=== PATIENT | female | born 1985 | race Caucasian/White ===

== ENCOUNTER → 2016-05-03 | Outpatient (CLI) | payer BC | LOC: RAD 20:21 | PROVIDERS: ATTEND Internal Medicine Medical Oncology | DX: C85.90 Non-Hodgkin lymphoma, unspecified, unspecified site (principal) | CPT/HCPCS: 78815; A9552 ==

== ENCOUNTER → 2016-07-06 | Outpatient (CLI) | payer BC | LOC: OD 11:48 | PROVIDERS: ATTEND Physician Assistant | DX: M25.561 Pain in right knee (principal); D16.21 Benign neoplasm of long bones of right lower limb ==

== ENCOUNTER 2016-08-10 11:15 | Emergency (ER) | payer BC ==
[2016-08-10] MEDS ORDERED: METOCLOPRAMIDE HCL INJ/PF 10 MG/2 ML SDV IM ONE (13:07)
[2016-08-10] MEDS ORDERED: KETOROLAC TROMETHAMINE 60 MG/2 ML SDV IM ONE (13:07)
[2016-08-10] MEDS ORDERED: DIPHENHYDRAMINE HCL 25 MG CAPSULE PO ONE (13:07)
--- NOTE | 2016-08-10 14:10 | ER Document Report ---
HPI - HPI Patient complains to provider of: head and sinus pressure Pain Level: 4 Context: Patient is a 30-year-old female presents emergency Department complaining of sinus pressure and headache for the past 2 months. Patient states that she has seen her dentist as well as an urgent care who put her on 2 different antibiotics without any resolution of her symptoms. Patient states that she has not had any fevers, chills, sinus discharge, pain to palpation of her sinuses. Pain is a throbbing pressure worse over the right side of her face. She states that she'll take [id number] Tylenol or Motrin with minimal improvement in her symptoms. She admits that she is light sensitive. She denies any history of migraines. PCP is Nohemi zendejas - CARDIOVASCULAR Cardiovascular: DENIES: Chest pain - REPRODUCTIVE Reproductive: DENIES: : - DERM Skin Color: Normal Past Medical History - Social History Smoking Status: Current Every Day Smoker Chew tobacco use (# tins/day): Yes Frequency of alcohol use: None Drug Abuse: None Family History: Reviewed & Not Pertinent Patient has suicidal ideation: No Patient has homicidal ideation: No Pulmonary Medical History: Denies: Hx Tuberculosis Neurological Medical History: Denies: Hx Seizures Endocrine Medical History: Reports: Hx Diabetes Mellitus Type 1 Renal/ Medical History: Denies: Hx End Stage Renal Disease, Hx Kidney Stones, Hx Peritoneal Dialysis GI Medical History: Reports: Hx Gastroesophageal Reflux Disease Musculoskeltal Medical History: Reports Hx Gout Past Surgical History: Reports: Hx Orthopedic Surgery - Back in 2012.. Denies: Hx Pacemaker - Immunizations Hx Diphtheria, Pertussis, Tetanus Vaccination: Yes Vertical Provider Document - CONSTITUTIONAL Agree With Documented VS: Yes Exam Limitations: No Limitations General Appearance: WD/WN, No Apparent Distress Notes: PHYSICAL EXAM GENERAL: Alert, interacts well. HEAD: Normocephalic, atraumatic. EYES: Pupils equal, round, and reactive to light. Extraocular movements intact. ENT: Oral mucosa moist, tongue midline. NECK: Full range of motion. Supple. Trachea midline. LUNGS: Clear to auscultation bilaterally, no wheezes, rales, or rhonchi. No respiratory distress. HEART: Regular rate and rhythm. No murmurs, gallops, or rubs. ABDOMEN: Soft, nondistended, nontender. No guarding, rebound, or rigidity.. Bowel sounds present in all 4 quadrants. EXTREMITIES: Moves all 4 extremities spontaneously. No edema, radial and dorsalis pedis pulses 2/4 bilaterally. No cyanosis. NEUROLOGICAL: Alert and oriented x4. Normal speech. PSYCH: Normal affect, normal mood. SKIN: Warm, dry, normal turgor. No rashes or lesions noted. - INFECTION CONTROL TRAVEL OUTSIDE OF THE [place] IN LAST 30 DAYS: No - RESPIRATORY O2 Sat by Pulse Oximetry: 95 Course - Re-evaluation Re-evalutation: 08/10/16 14:58 CT the head without any evidence of hemorrhage, mass, inflammation of the sinuses. Patient given a migraine cocktail which did improve her symptoms. Discussed with her to follow-up with her primary care for management and possible referral to a neurologist. - Vital Signs Vital signs: Temp Pulse Resp BP Pulse Ox 98.4 F 108 H 16 147/104 H 95 08/10/16 11:19 08/10/16 11:19 08/10/16 11:19 08/10/16 11:19 08/10/16 11:19 - Diagnostic Test Radiology reviewed: Image reviewed, Reports reviewed Discharge - Discharge Clinical Impression: Headache Condition: Good Disposition: HOME, SELF-CARE Additional Instructions: HEADACHE: The physician does not feel that the headache you are experiencing has a serious underlying cause. Most headaches are due to emotional stress, with resultant muscle tension (tension headache). Occasionally, headaches are secondary to changes in the blood vessels of the scalp (vascular headache and migraine headache). Sometimes, a headache is the first symptom of another developing illness, such as a viral infection. You have no evidence of stroke, bleeding, meningitis, or other serious cause of your headache. The treatment of headaches varies with the severity and cause of the pain. Not all headaches need pain shots. In fact, there is evidence that using narcotics for headaches may make them worse in the long run. The physician will determine the therapy that's in your best interest. If you develop a fever, if the headache is different from any you've previously experienced, or if the headache progressively worsens, then call your physician at once or go to the emergency room. REGLAN (METOCLOPRAMIDE): Reglan has been prescribed. This medicine affects the stomach and intestines. It can be used to treat nausea and vomiting, to prevent reflux of stomach acid up into the esophagus, or to increase the contractions of the stomach and intestines. It is often prescribed for esophagitis, and for paralysis of the stomach in diabetics. Reglan can cause either mild restlessness or drowsiness. You should contact the doctor at once if you become extremely restless, anxious, or cannot sleep, or if you develop uncontrollable motions of the lips, tongue, or jaw. Do not take alcohol with this medicine. Do not drive or operate machinery until you have been taking this medicine long enough to know how it affects you. Call the doctor if you develop abdominal pains, lightheadedness, black stool, or blood in the stool or vomitus. USE OF DIPHENHYDRAMINE: Diphenhydramine (Benadryl) is an antihistamine and has been recommended to help treat your headache and to prevent side effects of other medications used to treat headaches. The medication can be repeated four times daily. Age Elixir (12.5 mg/tsp) 25 mg pill adult 1-2 tabs Antihistamines may cause drowsiness, especially with the first dose. Do not operate machinery or drive while under the effects of the medication. Do not combine the medication with alcohol, or with any other medication without talking to your doctor. ANTINAUSEA MEDICATION: You have been given a medication to suppress nausea and vomiting. This type of medication can be given as a shot, pill, or suppository. It will usually last for many hours. Pills and shots usually last six to eight hours, suppositories last about 12 hours. For the typical illness, only one or two doses of the medication may be necessary. Mild lightheadedness may occur. This type of medicine can cause drowsiness. Do not drive or operate dangerous machinery while under its influence. Do not mix with alcohol. See your doctor at once if you have muscle spasms or tightness, or uncontrollable motions (particularly of the neck, mouth, or jaw). Persistent vomiting or severe lightheadedness should also be evaluated by the physician. TORADOL INJECTION: You have been given an injection of ketorolac tromethamine (Toradol). This is an excellent, safe drug for pain control. It also has potent antiinflammatory action. You should have significant pain relief within about one hour. Toradol is not addicting and is non-sedating. It does not interfere with driving or work. Call or return if you develop itching, hives, shortness of breath, or rash. FOLLOW-UP CARE: If you have been referred to a physician for follow-up care, call the physician s office for an appointment as you were instructed or within the next two days. If you experience worsening or a significant change in your symptoms, notify the physician immediately or return to the Emergency Department at any time for re-evaluation. Prescriptions: Butalb/Acetaminophen/Caffeine [Fioricet (50-325-40 mg) Tablet] 1 - 2 tab PO Q4HP PRN #20 tab PRN Reason: Forms: Elevated Blood Pressure Referrals: NOHEMI ZENDEJAS PA-C [Primary Care Provider] - Follow up in 3-5 days
[2016-08-10 14:38] VITALS: BP 136/82
== END 2016-08-10 14:40 | disposition home or self-care (01) ==
LOC: ER 11:15
DX: R51 Headache (principal); J34.89 Other specified disorders of nose and nasal sinuses; H53.149 Visual discomfort, unspecified; E10.9 Type 1 diabetes mellitus without complications; F17.200 Nicotine dependence, unspecified, uncomplicated
CPT/HCPCS: 99284; 96372; 70450; J1885; J2765

== ENCOUNTER 2016-10-06 17:00 | Emergency (ER) | payer BC ==
--- NOTE | 2016-10-06 17:29 | ER Document Report ---
ED Medical Screen (RME) - General Chief Complaint: Vaginal Bleeding Stated Complaint: WEAKNESS Time Seen by Provider: 10/06/16 17:28 Notes: Patient is a 30-year-old female, past medical history irregular periods, diabetes, presents with several days of heavy vaginal bleeding, passing clots and abdominal cramping. Her last menstrual period was 3 months ago. She has never had this before and never required a blood transfusion. She is starting to feel lightheaded now. PE: NAD. RRR. Non-tender abdomen. I have greeted and performed a rapid initial assessment of this patient. A comprehensive ED assessment and evaluation of the patient, analysis of test results and completion of the medical decision making process will be conducted by additional ED providers. TRAVEL OUTSIDE OF THE [place] IN LAST 30 DAYS: No - Related Data Allergies/Adverse Reactions: No Known Allergies Allergy (Verified 08/10/16 11:18) Past Medical History Pulmonary Medical History: Denies: Hx Tuberculosis Neurological Medical History: Denies: Hx Seizures Endocrine Medical History: Reports: Hx Diabetes Mellitus Type 1 Renal/ Medical History: Denies: Hx End Stage Renal Disease, Hx Kidney Stones, Hx Peritoneal Dialysis GI Medical History: Reports: Hx Gastroesophageal Reflux Disease Musculoskeltal Medical History: Reports Hx Gout Past Surgical History: Reports: Hx Orthopedic Surgery - Back in 2012.. Denies: Hx Pacemaker - Immunizations Hx Diphtheria, Pertussis, Tetanus Vaccination: Yes Physical Exam - Vital signs Vitals: Temp Pulse Resp BP Pulse Ox 98.2 F 86 14 142/91 H 96 10/06/16 17:07 10/06/16 17:07 10/06/16 17:07 10/06/16 17:07 10/06/16 17:07 Course - Vital Signs Vital signs: Temp Pulse Resp BP Pulse Ox 98.2 F 86 14 142/91 H 96 10/06/16 17:07 10/06/16 17:07 10/06/16 17:07 10/06/16 17:07 10/06/16 17:07
[2016-10-06 17:49] LABS: ABSOLUTE BASOPHILS # (AUTO) 0.1 10^3/uL (0.0-0.2); ABSOLUTE EOSINOPHILS # (AUTO) 0.2 10^3/uL (0.0-0.6); ABSOLUTE LYMPHOCYTES (AUTO) 3.7 10^3/uL (0.5-4.7); ABSOLUTE MONOCYTES (AUTO) 0.6 10^3/uL (0.1-1.4); BASOPHILS % (AUTO) 1.1 % (0-2); HEMATOCRIT 44.6 % (36.0-47.0); HEMOGLOBIN 15.1 g/dL (12.0-15.5); HGB HCT DIFFERENCE 0.7; LYMPHOCYTES % (AUTO) 35.1 % (13-45); MEAN CORPUSCULAR HEMOGLOBIN 31.1 pg (27.0-33.4); MEAN CORPUSCULAR HGB CONC 33.8 g/dL (32.0-36.0); MEAN CORPUSCULAR VOLUME 92 fl (80-97); MONOCYTES % (AUTO) 5.2 % (3-13); RED BLOOD COUNT 4.84 10^6/uL (3.72-5.28); RED CELL DISTRIBUTION WIDTH 13.1 % (11.5-14.0); SEGMENTED NEUTROPHILS % (AUTO) 56.6 % (42-78); WHITE BLOOD COUNT 10.7 10^3/uL (4.0-10.5)
[2016-10-06] MEDS ORDERED: HYDROCODONE/ACETAMINOPHEN 5-325 MG TABLET PO ONE (18:13)
--- NOTE | 2016-10-06 18:13 | ER Document Report ---
ED General - General Chief Complaint: Vaginal Bleeding Stated Complaint: WEAKNESS Time Seen by Provider: 10/06/16 17:28 Mode of Arrival: Ambulatory Information source: Patient TRAVEL OUTSIDE OF THE [place] IN LAST 30 DAYS: No - HPI Notes: Patient presents to ER A&O x 4 with complaint menstrual bleeding x 2 weeks increasing over last four days. Reports blood clots last four days. Reports hx of irregular periods. Denies hx of anemia. Breaths even and unlabored. Speaking in clear and complete sentences. NAD noted. Reports mild lower abdominal cramping. Patient also reports that she is noncompliant with her diabetic medications including metformin, Lantus, Actos, Victoza, lisinopril. She was counseled at length about the need to take these diabetic medications in the complication she would suffer she did not. She is also instructed to quit smoking. - Related Data Allergies/Adverse Reactions: No Known Allergies Allergy (Verified 08/10/16 11:18) Past Medical History - Social History Smoking Status: Current Every Day Smoker Smoking Education Provided: Yes Frequency of alcohol use: None Drug Abuse: None Lives with: Family Family History: Reviewed & Not Pertinent Patient has suicidal ideation: No Patient has homicidal ideation: No Pulmonary Medical History: Denies: Hx Tuberculosis Neurological Medical History: Denies: Hx Seizures Endocrine Medical History: Reports: Hx Diabetes Mellitus Type 1 Renal/ Medical History: Denies: Hx End Stage Renal Disease, Hx Kidney Stones, Hx Peritoneal Dialysis GI Medical History: Reports: Hx Gastroesophageal Reflux Disease Musculoskeltal Medical History: Reports Hx Gout Past Surgical History: Reports: Hx Orthopedic Surgery - Back in 2012.. Denies: Hx Pacemaker - Immunizations Hx Diphtheria, Pertussis, Tetanus Vaccination: Yes Review of Systems - Review of Systems Notes: REVIEW OF SYSTEMS: CONSTITUTIONAL : Denies fever, chills, or sweats. Denies recent illness. EENT: Denies eye, ear, throat, or mouth pain or symptoms. Denies nasal or sinus congestion or discharge. Denies throat, tongue, or mouth swelling or difficulty swallowing. CARDIOVASCULAR: Denies chest pain. Denies palpitations or racing or irregular heart beat. Denies ankle edema. RESPIRATORY: Denies cough, cold, or chest congestion. Denies shortness of breath, difficulty breathing, or wheezing. GASTROINTESTINAL: Denies abdominal pain or distention. Denies nausea, vomiting , or diarrhea. Denies blood in vomitus, stools, or per rectum. Denies black, tarry stools. Denies constipation. GENITOURINARY: Denies difficulty urinating, painful urination, burning, frequency, blood in urine, or discharge. FEMALE GENITOURINARY: Denies vaginal discharge or odor. MUSCULOSKELETAL: Denies back or neck pain or stiffness. Denies joint pain or swelling. SKIN: Denies rash, lesions or sores. HEMATOLOGIC : Denies easy bruising or bleeding. LYMPHATIC: Denies swollen, enlarged glands. NEUROLOGICAL: Denies confusion or altered mental status. Denies passing out or loss of consciousness. Denies dizziness or lightheadedness. Denies headache. Denies weakness or paralysis or loss of use of either side. Denies problems with gait or speech. Denies sensory loss, numbness, or tingling. Denies seizures. PSYCHIATRIC: Denies anxiety or stress. Denies depression, suicidal ideation, or homicidal ideation. ALL OTHER SYSTEMS REVIEWED AND NEGATIVE. Dictation was performed using [email or web address] voice recognition software Physical Exam - Vital signs Vitals: Temp Pulse Resp BP Pulse Ox 98.2 F 86 14 142/91 H 96 10/06/16 17:07 10/06/16 17:07 10/06/16 17:07 10/06/16 17:07 10/06/16 17:07 - Notes Notes: PHYSICAL EXAMINATION: GENERAL: Well-appearing, well-nourished and in no acute distress. HEAD: Atraumatic, normocephalic. EYES: Pupils equal round and reactive to light, extraocular movements intact, conjunctiva are normal. ENT: Nares patent, oropharynx clear without exudates. Moist mucous membranes. NECK: Normal range of motion, supple without lymphadenopathy LUNGS: Breath sounds clear to auscultation bilaterally and equal. No wheezes rales or rhonchi. HEART: Regular rate and rhythm without murmurs ABDOMEN: Soft, nontender, nondistended abdomen. No guarding, no rebound. No masses appreciated. Obese. Female : deferred Musculoskeletal: Normal range of motion. No cyanosis. Trace bilateral lower extremity edema. Negative Homans. No palpable cord. NEUROLOGICAL: Cranial nerves grossly intact. Normal speech, normal gait. Normal sensory, motor exams PSYCH: Normal mood, normal affect. SKIN: Warm, Dry, normal turgor, no rashes or lesions noted. No skin breakdown. Course - Re-evaluation Re-evalutation: 10/06/16 19:11 Length about the need to control her diabetes. She was given approximately 1 L of fluid to drink with water. She was given Provera and Sylmar. No evidence for anemia or or electrolyte imbalance or renal insufficiency or significant infection or urinary tract infection or suggestion for significant ketoacidosis. 10/06/16 19:11 - Vital Signs Vital signs: Temp Pulse Resp BP Pulse Ox 98.2 F 86 14 142/91 H 96 10/06/16 17:07 10/06/16 17:07 10/06/16 17:07 10/06/16 17:07 10/06/16 17:07 - Laboratory Result Diagrams: 10/06/16 17:37 10/06/16 17:37 Laboratory results interpreted by me: 10/06/16 10/06/16 10/06/16 17:37 17:37 17:45 WBC 10.7 H Sodium 135.4 L Carbon Dioxide 20 L Creatinine 0.47 L Glucose 273 H Direct Bilirubin 0.5 H AST 61 H Urine Protein 100 H Urine Glucose (UA) >=500 H Urine Ketones TRACE H Urine Blood LARGE H Discharge - Discharge Clinical Impression: Hyperglycemia, Medically noncompliant Menorrhagia Qualifiers: Menorrahagia type: with irregular cycle Qualified Code(s): N92.1 - Excessive and frequent menstruation with irregular cycle Condition: Stable Disposition: HOME, SELF-CARE Instructions: Menorrhagia ([facility]), Hyperglycemia ([facility]), Stop Smoking ([facility]) Additional Instructions: Drink plenty of water. Watch your diet closely. Return to the emergency department in case of fever, severe bleeding or vomiting. Follow-up with your regular practitioner to inquire about starting control pills to regulate your menses. Prescriptions: Tramadol HCl [Ultram 50 mg Tablet] 50 mg PO Q4HP PRN #20 tablet PRN Reason: Ibuprofen [Motrin 800 mg Tablet] 800 mg PO Q8H PRN #30 tab PRN Reason: Medroxyprogesterone Acet [Provera 10 Mg Tablet] 10 mg PO DAILY #10 tablet Forms: Smoking Cessation Education
[2016-10-06 18:21] LABS: APPEARANCE,URINE CLOUDY; BILIRUBIN,URINE NEGATIVE (NEGATIVE); GLUCOSE, URINE >=500 mg/dL (NEGATIVE); KETONES,URINE TRACE mg/dL (NEGATIVE); LEUKOCYTE ESTERASE,URINE NEGATIVE (NEGATIVE); NITRITE,URINE NEGATIVE (NEGATIVE); PROTEIN,URINE 100 mg/dL (NEGATIVE); URINE SPECIFIC GRAVITY 1.033; UROBILINOGEN,URINE NEGATIVE mg/dL (<2.0)
[2016-10-06 18:41] LABS: ALANINE AMINOTRANSFERASE 45 U/L (9-52); ALKALINE PHOSPHATASE 61 U/L (38-126); ANION GAP 14 (5-19); ASPARTATE AMINO TRANSFERASE 61 U/L (14-36); BILIRUBIN,DIRECT 0.5 mg/dL (0.0-0.4); BILIRUBIN,TOTAL 0.7 mg/dL (0.2-1.3); BLOOD UREA NITROGEN 10 mg/dL (7-20); CALCIUM 9.7 mg/dL (8.4-10.2); CARBON DIOXIDE 20 mmol/L (22-30); CHLORIDE 101 mmol/L (98-107); CREATININE RESULT 0.47 mg/dL (0.52-1.25); GLUCOSE 273 mg/dL (75-110); POTASSIUM 4.3 mmol/L (3.6-5.0); SODIUM 135.4 mmol/L (137-145); TOTAL PROTEIN 7.3 g/dL (6.3-8.2)
[2016-10-06] MEDS ORDERED: MEDROXYPROGESTERONE ACET 10 MG TABLET PO ONE (19:00)
[2016-10-06 19:35] VITALS: BP 138/87
== END 2016-10-06 19:34 | disposition home or self-care (01) ==
LOC: ER 17:00
DX: N92.1 Excessive and frequent menstruation with irregular cycle (principal); E10.65 Type 1 diabetes mellitus with hyperglycemia; T38.3X6A Underdosing of insulin and oral hypoglycemic [antidiabetic] drugs, initial encounter; T46.4X6A Underdosing of angiotensin-converting-enzyme inhibitors, initial encounter; Z91.14 Patient's other noncompliance with medication regimen; R10.30 Lower abdominal pain, unspecified; F17.200 Nicotine dependence, unspecified, uncomplicated; Z71.6 Tobacco abuse counseling
CPT/HCPCS: 99284; 36415; 85025; 81025; 80053; 81001; J3490

== ENCOUNTER 2017-04-12 15:17 | Emergency (ER) | payer SELFPAY ==
[2017-04-12] MEDS ORDERED: KETOROLAC TROMETHAMINE 60 MG/2 ML SDV IM ONE (16:28)
--- NOTE | 2017-04-12 16:33 | ER Document Report ---
ED Extremity Problem, Lower - General Chief Complaint: Knee Pain Stated Complaint: RIGHT KNEE PAIN Time Seen by Provider: 04/12/17 16:00 Mode of Arrival: Ambulatory Information source: Patient Notes: 31-year-old female presents to ED for complaint of popping in her right knee. She states that on she was horsing around and heard and felt a pop in her knee causing her to fall to the ground. Patient states that her was able to get her to the chair. Patient states she can walk as long as she walks straight but if she tries to turn or to twist on her leg that it feels like it is popping out of joint and it is extremely painful. She states is very painful to bend. TRAVEL OUTSIDE OF THE [place] IN LAST 30 DAYS: No - HPI Patient complains to provider of: Injury, Pain Location: Knee - Right Occurred: Other - Where: Home, Outdoors Onset/Duration: Intermittent Quality of pain: Sharp, Throbbing Severity: Moderate Pain Level: 4 Context: Twisted Recent injury: Possibly Associated symptoms: Shelby a pop, Painful ambulation Exacerbated by: Movement, Walking Relieved by: Elevation, Ice, Rest - Related Data Allergies/Adverse Reactions: No Known Allergies Allergy (Verified 08/10/16 11:18) Past Medical History - General Information source: Patient - Social History Smoking Status: Current Every Day Smoker Cigarette use (# per day): Yes - Pack per day Chew tobacco use (# tins/day): No Smoking Education Provided: Yes - 4 minutes Frequency of alcohol use: None Drug Abuse: None Occupation: None Lives with: Family Family History: Arthritis, DM, Hypertension, Malignancy. denies: CAD, COPD, CVA , Hyperlipidemia, Thyroid Disfunction Patient has suicidal ideation: No Patient has homicidal ideation: No - Past Medical History Cardiac Medical History: Reports: None Pulmonary Medical History: Reports: None EENT Medical History: Reports: None Neurological Medical History: Reports: None Endocrine Medical History: Reports: Hx Diabetes Mellitus Type 2 Renal/ Medical History: Reports: None Malignancy Medical History: Reports: None GI Medical History: Reports: Hx Gastroesophageal Reflux Disease Musculoskeltal Medical History: Reports Hx Arthritis, Reports Hx Gout, Reports Hx Musculoskeletal Deformity, Reports Hx Musculoskeletal Trauma Skin Medical History: Reports None Psychiatric Medical History: Reports: None Traumatic Medical History: Reports: Hx Fractures - Humerus Infectious Medical History: Reports: None Past Surgical History: Reports: Hx Oral Surgery - [place] teeth, Hx Orthopedic Surgery - Back in 2013. 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 denies: Joint swelling Skin: No symptoms reported Hematologic/Lymphatic: No symptoms reported Neurological/Psychological: No symptoms reported -: Yes All other systems reviewed and negative Physical Exam - Vital signs Vitals: Temp Pulse Resp BP Pulse Ox 98.8 F 108 H 18 134/90 H 96 04/12/17 15:21 04/12/17 15:21 04/12/17 15:21 04/12/17 15:21 04/12/17 15:21 Interpretation: Normal - General General appearance: Appears well, Alert - HEENT Head: Normocephalic, Atraumatic Eyes: Normal Pupils: PERRL - Respiratory Respiratory status: No respiratory distress Chest status: Nontender Breath sounds: Normal Chest palpation: Normal - Cardiovascular Rhythm: Regular Heart sounds: Normal auscultation Murmur: No - Abdominal Inspection: Normal Distension: No distension Bowel sounds: Normal Tenderness: Nontender Organomegaly: No organomegaly - Back Back: Normal, Nontender - Extremities General upper extremity: Normal inspection, Nontender, Normal color, Normal ROM , Normal temperature General lower extremity: Normal inspection, Normal color, Normal temperature. No: Celia's sign Knee: Tender, Pain with ROM, Popliteal fossa tender, Tender joint line. No: Abrasion, Deformity, Dislocation, Drawer's test instability, Ecchymosis, Instability, Joint effusion, Laceration, Laxity with valgus stress, Laxity with varus stress, Patellar tendon intact, Unable to bear weight - Neurological Neuro grossly intact: Yes Cognition: Normal Orientation: AAOx4 Viola Coma Scale Eye Opening: Spontaneous Viola Coma Scale Verbal: Oriented Rhodes Coma Scale Motor: Obeys Commands Viola Coma Scale Total: 15 Speech: Normal Motor strength normal: LUE, RUE, LLE, RLE Sensory: Normal - Psychological Associated symptoms: Normal affect, Normal mood - Skin Skin Temperature: Warm Skin Moisture: Dry Skin Color: Normal Course - Re-evaluation Re-evalutation: 04/12/17 20:36 X-ray discussed with patient and written report given to patient. Patient instructed to follow-up with orthopedics. Patient was given a Toradol injection in the ED for her pain. Patient instructed to use ibuprofen over-the- counter. - Vital Signs Vital signs: Temp Pulse Resp BP Pulse Ox 98.0 F 92 16 147/87 H 96 04/12/17 17:55 04/12/17 17:55 04/12/17 17:55 04/12/17 17:55 04/12/17 17:55 - Diagnostic Test Radiology reviewed: Image reviewed, Reports reviewed Procedures - Immobilization Left Knee Time completed: 17:30 Immobilizer type: Crutches, Knee immobilizer Performed by: PCT Post-Proc Neuro Vasc Exam: Normal Alignment checked and good: Yes Discharge - Discharge Clinical Impression: osteochondroma proximal tibia HTN (hypertension) Qualifiers: Hypertension type: unspecified Qualified Code(s): I10 - Essential (primary) hypertension Condition: Stable Disposition: HOME, SELF-CARE Instructions: Family Physicians / Practices, Use of [id number] Ibuprofen ([facility]) Additional Instructions: Your x-ray shows a small osteochondroma to the proximal tibia. This is not an acute finding. This is something that she will need to follow-up with the orthopedics concerning. KNEE IMMOBILIZING SPLINT: The knee immobilizing splint will protect the injury while healing begins. This type of splint does not allow the knee to bend at all. No running or sports will be possible. If the splint allows painfree walking, it's giving adequate protection. If there is still significant pain, crutches may be needed as well. Don't do anything that hurts. Adjusted the splint, if necessary. The stiffeners on the sides are attached with Velcro, so they can be easily moved to adjust for thigh and calf size. If you need help with these adjustments, come back. You will lose muscle strength in the thigh while using this splint. The doctor will advise you if it's safe to do isometric knee exercises while you use it. USE OF CRUTCHES: The doctor has recommended that you not bear weight at this time. You will need to use crutches. Adjust the crutches so the tops come to about two inches under the armpit while you are standing upright. Use your hands -- not your armpits -- to support your weight. To get into a chair, support yourself with one crutch on the injured side. Hold the chair with the other hand, then lower yourself while putting all your weight on the good leg. Going up stairs is `good leg up, step up, then bring up crutches and bad leg.' Down stairs is `bad leg and crutches down, then bring good leg down.' If you develop numbness or swelling in an arm or hand, you are using the crutches incorrectly. Return if you are having any problems with the crutches. ICE & ELEVATION: Apply ice packs frequently against the painful area. Many different schedules are recommended, such as "20 minutes on, 20 minutes off" or "one hour ice, two hours rest." If you need to work, you may need to go longer between ice treatments. You should plan to have the area ice packed AT LEAST one- fourth of the time. The ice should be applied over the wrap, tape, or splint, or over a layer of cloth -- not directly against the skin. Some ice bags have a built-in cloth and can be put directly on the skin. Your injured part should be elevated as much as possible over the next 48 hours. Try to keep the injury above the level of the heart. Avoid use of the injured area. Elevation and rest will decrease the swelling. USE OF [id number] IBUPROFEN: Ibuprofen (Advil, Nuprin, Medipren, Motrin IB) is a medication for fever and pain control. In addition, it has anti- inflammatory effects which may be beneficial, especially in the treatment of injuries. It's best to take ibuprofen with food. Persons with ulcer disease or allergy to aspirin should notify their physician of this before taking ibuprofen. Ibuprofen can be given every four to six hours, for a total of four doses daily. Age Pain or fever dose Antiinflammatory dose 6-8 yr 200 mg (1 tab) 200 mg (1 tab) 9-11 yr 200 mg (1 tab) 200-400 mg (1-2 tab) 11-14 yr 200-400 mg (1-2 tab) 400 mg (2 tab) 15-adult 400 mg (2 tab) 600 mg (3 tab) FOLLOW-UP CARE: If you have been referred to a physician for follow-up care, call the physician s office for an appointment as you were instructed or within the next two days. If you experience worsening or a significant change in your symptoms, notify the physician immediately or return to the Emergency Department at any time for re-evaluation. Forms: Elevated Blood Pressure, Smoking Cessation Education Referrals: [facility], [ACTIVE STAFF] - Follow up as needed
--- NOTE | 2017-04-12 16:52 | RADIOLOGY REPORT (SQ) ---
EXAM DESCRIPTION: KNEE RIGHT 4 VIEWS COMPLETED DATE/TIME: 04/12/2017 4:41 pm REASON FOR STUDY: popping feelling causing her to fall pain in knee COMPARISON: None. NUMBER OF VIEWS: Four views. TECHNIQUE: AP, lateral, and both oblique radiographic images acquired of the right knee. LIMITATIONS: None. FINDINGS: MINERALIZATION: Normal. BONES: No acute fracture or dislocation. There is a small focal projection of bone extending inferio rly at the level of the proximal metaphysis of the tibia medially most consistent with a small osteoc hondroma. JOINT: No effusion. SOFT TISSUES: No soft tissue swelling. No radio-opaque foreign body. OTHER: No other significant finding. IMPRESSION: Findings consistent with a small osteochondroma involving the proximal tibia as noted ab ove. NO RADIOGRAPHIC EVIDENCE OF ACUTE INJURY. TECHNICAL DOCUMENTATION: JOB ID: [id number] [employer]- All Rights Reserved
[2017-04-12 17:58] VITALS: BP 147/87
== END 2017-04-12 17:58 | disposition home or self-care (01) ==
LOC: ER 15:17
DX: D16.22 Benign neoplasm of long bones of left lower limb (principal); I10 Essential (primary) hypertension; M25.561 Pain in right knee; W18.30XA Fall on same level, unspecified, initial encounter; E11.9 Type 2 diabetes mellitus without complications; F17.210 Nicotine dependence, cigarettes, uncomplicated
CPT/HCPCS: 99406; 99283; 96372; 73564; L1830; J1885

== ENCOUNTER 2017-05-17 19:08 | Inpatient (IN) | payer BC ==
[2017-05-17] MEDS ORDERED: NORMAL SALINE 1000 ML 1,000 ML IV ONE (19:56)
--- NOTE | 2017-05-17 19:59 | ER Document Report ---
ED Medical Screen (RME) - General Chief Complaint: Abscess Stated Complaint: POSSIBLE ABSCESS Time Seen by Provider: 05/17/17 19:56 Notes: pt states has "sore" near rectum, has had fever and "sugars are high". TRAVEL OUTSIDE OF THE [place] IN LAST 30 DAYS: No - Related Data Allergies/Adverse Reactions: No Known Allergies Allergy (Verified 08/10/16 11:18) Past Medical History - Social History Chew tobacco use (# tins/day): No Drug Abuse: None Endocrine Medical History: Reports: Hx Diabetes Mellitus Type 2 Renal/ Medical History: Denies: Hx Peritoneal Dialysis GI Medical History: Reports: Hx Gastroesophageal Reflux Disease Musculoskeltal Medical History: Reports Hx Arthritis, Reports Hx Gout, Reports Hx Musculoskeletal Deformity, Reports Hx Musculoskeletal Trauma Traumatic Medical History: Reports: Hx Fractures - Humerus Past Surgical History: Reports: Hx Oral Surgery - [place] teeth, Hx Orthopedic Surgery - Back in 2012. 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
[2017-05-17 22:54] LABS: VENOUS BLOOD HCO3 25.9 mmol/L (20-32); VENOUS BLOOD PCO2 42.3 mmHg (35-63); VENOUS BLOOD PH 7.41 (7.30-7.42)
[2017-05-17 22:56] LABS: ABSOLUTE BASOPHILS # (AUTO) 0.2 10^3/uL (0.0-0.2); ABSOLUTE EOSINOPHILS # (AUTO) 0.1 10^3/uL (0.0-0.6); ABSOLUTE LYMPHOCYTES (AUTO) 3.6 10^3/uL (0.5-4.7); ABSOLUTE MONOCYTES (AUTO) 0.9 10^3/uL (0.1-1.4); ABSOLUTE NEUT (AUTO) 12.7 10^3/uL (1.7-8.2); BASOPHILS % (AUTO) 1.2 % (0-2); EOSINOPHILS % (AUTO) 0.7 % (0-6); HEMATOCRIT 43.7 % (36.0-47.0); HEMOGLOBIN 15.1 g/dL (12.0-15.5); LYMPHOCYTES % (AUTO) 20.2 % (13-45); MEAN CORPUSCULAR HEMOGLOBIN 30.9 pg (27.0-33.4); MEAN CORPUSCULAR HGB CONC 34.6 g/dL (32.0-36.0); MEAN CORPUSCULAR VOLUME 89 fl (80-97); MONOCYTES % (AUTO) 5.3 % (3-13); PLATELET COUNT 220 10^3/uL (150-450); RED BLOOD COUNT 4.91 10^6/uL (3.72-5.28); RED CELL DISTRIBUTION WIDTH 12.7 % (11.5-14.0); SEGMENTED NEUTROPHILS % (AUTO) 72.6 % (42-78); TOTAL CELLS COUNTED % (AUTO) 100 %; WHITE BLOOD COUNT 17.6 10^3/uL (4.0-10.5)
[2017-05-17 23:09] LABS: ALANINE AMINOTRANSFERASE 31 U/L (9-52); ALBUMIN 4.6 g/dL (3.5-5.0); ALKALINE PHOSPHATASE 60 U/L (38-126); ANION GAP 11 (5-19); ASPARTATE AMINO TRANSFERASE 23 U/L (14-36); BILIRUBIN,DIRECT 0.3 mg/dL (0.0-0.4); BLOOD UREA NITROGEN 5 mg/dL (7-20); CALCIUM 9.4 mg/dL (8.4-10.2); CARBON DIOXIDE 26 mmol/L (22-30); CHLORIDE 99 mmol/L (98-107); GLUCOSE 264 mg/dL (75-110); POTASSIUM 4.2 mmol/L (3.6-5.0); SODIUM 135.9 mmol/L (137-145); TOTAL PROTEIN 7.3 g/dL (6.3-8.2)
[2017-05-18] MEDS ORDERED: VANCOMYCIN HCL INJ 1000 MG VIAL IV ONE (00:29)
[2017-05-18] MEDS ORDERED: CLINDAMYCIN 300 MG/D5W RTU 300 MG/50 ML RTUPB IV ONE (00:31)
[2017-05-18] MEDS ORDERED: HYDROMORPHONE HCL INJ/PF 2 MG/ML AMPULE IV ONE (01:42)
--- NOTE | 2017-05-18 01:43 | ER Document Report ---
ED General - General Chief Complaint: Abscess Stated Complaint: POSSIBLE ABSCESS Time Seen by Provider: 05/17/17 19:56 Notes: Patient is a 31-year-old female presents with complaint of an abscess. Sepsis no her rectum. She has had abscess before but more in the abdominal wall. She is a diabetic. Said her symptoms have been worsening over last 2-3 days. Subjective fevers at home. No vomiting. No diarrhea. No other complaints at this time. TRAVEL OUTSIDE OF THE [place] IN LAST 30 DAYS: No - Related Data Allergies/Adverse Reactions: No Known Allergies Allergy (Verified 08/10/16 11:18) Past Medical History - Social History Smoking Status: Current Every Day Smoker Chew tobacco use (# tins/day): No Frequency of alcohol use: None Drug Abuse: None Family History: Arthritis, DM, Hypertension, Malignancy. denies: CAD, COPD, CVA , Hyperlipidemia, Thyroid Disfunction Patient has suicidal ideation: No Patient has homicidal ideation: No Endocrine Medical History: Reports: Hx Diabetes Mellitus Type 2 Renal/ Medical History: Denies: Hx Peritoneal Dialysis GI Medical History: Reports: Hx Gastroesophageal Reflux Disease Musculoskeltal Medical History: Reports Hx Arthritis, Reports Hx Gout, Reports Hx Musculoskeletal Deformity, Reports Hx Musculoskeletal Trauma Traumatic Medical History: Reports: Hx Fractures - Humerus Past Surgical History: Reports: Hx Oral Surgery - [place] teeth, Hx Orthopedic Surgery - Back in 2012. 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 RESPIRATORY: Denies cough, cold, or chest congestion. Denies shortness of breath, difficulty breathing, or wheezing. GASTROINTESTINAL: Denies abdominal pain. Denies nausea, vomiting, or diarrhea. Denies constipation. Last BM: GENITOURINARY: Denies difficulty urinating, painful urination, burning, frequency, or blood in urine. MUSCULOSKELETAL: Denies neck or back pain or joint pain or swelling. SKIN: Perirectal abscess NEUROLOGICAL: Denies altered mental status or loss of consciousness. Denies headache. Denies weakness or paralysis or loss of use of either side. Denies problems with gait or speech. Denies sensory or motor loss. ALL OTHER SYSTEMS REVIEWED AND NEGATIVE. Physical Exam - Vital signs Vitals: Temp Pulse Resp BP Pulse Ox 99.4 F 126 H 18 152/106 H 96 05/17/17 19:51 05/17/17 19:51 05/17/17 19:51 05/17/17 19:51 05/17/17 19:51 - Notes Notes: General Appearance: Well nourished, alert, cooperative, no acute distress, mild to moderate obvious discomfort. Vitals: reviewed, See vital signs table. Head: no swelling or tenderness to the head Eyes: PERRL, EOMI, Conjuctiva clear Lungs: No wheezing, No rales, No rhonci, No accessory muscle use, good air exchange bilaterally. Heart: Normal rate, Regular rythm, No murmur, no rub Abdomen: Normal BS, soft, No rigidity, No abdominal tenderness, No guarding, no rebound, Rectal: Patient has what appears to be a abscess start in the perirectal area and then continues in the largest into the perineum. Perineum is very swollen and indurated and has an obvious large abscess in this area. Abscess appears to taper down before reaching the genital area. Extremities: good pulses in all extremities, no swelling or tenderness in the extremities, no edema. Skin: warm, dry, appropriate color, no rash Neuro: speech clear, oriented x 3, normal affect, responds appropriately to questions. Course - Re-evaluation Re-evalutation: 05/18/17 01:51 CT scan is currently pending. I have called and discussed the case with the surgeon, Dr. Taveras, who agrees to admit the patient for definitive treatment such as surgical drainage of the abscess. Patient has been started on Clindamycin and vancomycin being that she is a diabetic. Patient will be monitored until transferred to her bed. Dictation of this chart was performed using voice recognition software; therefore, there may be some unintended grammatical errors. - Vital Signs Vital signs: Temp Pulse Resp BP Pulse Ox 99.4 F 126 H 18 152/106 H 96 05/17/17 19:51 05/17/17 19:51 05/17/17 19:51 05/17/17 19:51 05/17/17 19:51 - Laboratory Result Diagrams: 05/17/17 22:40 05/17/17 22:40 Laboratory results interpreted by me: 05/17/17 05/17/17 05/17/17 22:37 22:40 22:40 WBC 17.6 H Absolute Neutrophils 12.7 H Sodium 135.9 L BUN 5 L Creatinine 0.44 L Glucose 264 H POC Glucose 266 H Lactic Acid 05/17/17 22:40 WBC Absolute Neutrophils Sodium BUN Creatinine Glucose POC Glucose Lactic Acid 2.8 H Discharge - Discharge Clinical Impression: Perianal abscess, Perineal abscess Condition: Stable Disposition: ADMITTED INPATIENT Admitting Provider: Surgicalist Referrals: NOHEMI CASAS PA-C [Primary Care Provider] - Follow up as needed
[2017-05-18] MEDS ORDERED: DIPHENHYDRAMINE HCL 50 MG/ML VIAL IV ONE (02:24)
--- NOTE | 2017-05-18 02:38 | RADIOLOGY REPORT (SQ) ---
EXAM DESCRIPTION: CT PELVIS WITH CLINICAL HISTORY: 31 years Female, perineal and rectal abscess COMPARISON: None. TECHNIQUE: 100 mL Isovue-370 IV contrast. Coronal and sagittal reformat. This exam was performed according to our departmental dose-optimization program, which includes automated exposure control, adjustment of the mA and/or kV according to patient size and/or use of iterative reconstruction technique. FINDINGS: 3.5 cm patchy swelling and edema of subcutaneous fat of the left paramedial perineum posteriorly; fluid component measures up to 1.1 x 1.9 cm. No evidence of abscess. Normal appendix. No significant free fluid in the pelvis. Pelvic structures appear otherwise intact. IMPRESSION: 3.5 cm region of subcutaneous swelling/edema left paramedial peroneal soft tissues may indicate cellulitis. No evidence of abscess.
[2017-05-18] MEDS ORDERED: FENTANYL CITRATE INJ/PF 100 MCG/2 ML AMPUL IV ONE ×2 (06:42→09:28)
[2017-05-18] MEDS ORDERED: FENTANYL CITRATE INJ/PF 100 MCG/2 ML AMPUL ONE (15:41)
[2017-05-18] MEDS ORDERED: ONDANSETRON HCL INJ/PF 4 MG/2 ML SDV ONE (15:41)
[2017-05-18] MEDS ORDERED: MIDAZOLAM 2 MG/2 ML INJ ONE (15:41)
[2017-05-18] MEDS ORDERED: PROPOFOL INJ 200 MG/20 ML VIAL IV ONE (15:41)
[2017-05-18] MEDS ORDERED: ONDANSETRON HCL INJ/PF 4 MG/2 ML SDV IV PRN (18:13)
[2017-05-18] MEDS ORDERED: (PENDING PHARMACY ID) (Metformin Hcl [Metformin Hcl] 1,000 MG) PO SCH (18:30)
[2017-05-18] MEDS ORDERED: VANCOMYCIN HCL INJ 1000 MG VIAL IV SCH ×2 (18:30→22:00)
[2017-05-18] MEDS ORDERED: GABAPENTIN 300 MG CAPSULE PO PRN (18:45)
--- NOTE | 2017-05-18 19:24 | PDOC H&P ---
History of Present Illness Admission Date/PCP: 05/18/17 02:02 NOHEMI CASAS PA-C History of Present Illness: CLYDE SALAS is a 31 year old female with a painful left perianal swelling that started 3 days ago. There was minimal discharge from it today. She is diabetic. Past Medical History Endocrine Medical History: Reports: Diabetes Mellitus Type 2 GI Medical History: Reports: Gastroesophageal Reflux Disease Musculoskeltal Medical History: Reports: Arthritis, Gout Psychiatric Medical History: Denies: Depression Past Surgical History Past Surgical History: Reports: Orthopedic Surgery - Back in 2013. 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 denies: CAD, COPD, CVA , Hyperlipidemia, Thyroid Disfunction Parental Family History Reviewed: No Children Family History Reviewed: Unknown Sibling(s) Family History Reviewed.: Unknown Medication/Allergy Home Medications: Gabapentin [Neurontin] 600 mg PO HSP PRN 05/18/17 Insulin Glargine,Hum.rec.anlog [Lantus] 50 units SUBCUT PC 05/18/17 Metformin HCl 1,000 mg PO BID 05/18/17 Allergies/Adverse Reactions: No Known Allergies Allergy (Verified 08/10/16 11:18) Review of Systems Constitutional: ABSENT: chills, fever(s), headache(s), weight gain, weight loss Eyes: ABSENT: visual disturbances Ears: ABSENT: hearing changes Nose, Mouth, and Throat: ABSENT: as per HPI, headache(s), mouth pain, sore throat, vertigo, other Cardiovascular: ABSENT: chest pain, dyspnea on exertion, edema, orthropnea, palpitations Respiratory: ABSENT: cough, hemoptysis Gastrointestinal: ABSENT: abdominal pain, constipation, diarrhea, hematemesis, hematochezia, nausea, vomiting Genitourinary: ABSENT: dysuria, hematuria Musculoskeletal: ABSENT: joint swelling Integumentary: PRESENT: other - left perianal swelling with minimal drainage Neurological: ABSENT: abnormal gait, abnormal speech, confusion, dizziness, focal weakness, syncope Psychiatric: ABSENT: anxiety, depression, homidical ideation, suicidal ideation Endocrine: ABSENT: cold intolerance, heat intolerance, polydipsia, polyuria Hematologic/Lymphatic: ABSENT: easy bleeding, easy bruising Physical Exam Vital Signs: Temp Pulse Resp BP Pulse Ox 98.3 F 93 20 114/66 96 05/18/17 18:30 05/18/17 18:30 05/18/17 18:30 05/18/17 18:30 05/18/17 18:30 Intake & Output 05/17/17 05/18/17 05/19/17 06:59 06:59 06:59 Intake Total 800 Output Total 25 Balance 775 General appearance: PRESENT: no acute distress, well-developed, well-nourished Head exam: PRESENT: atraumatic, normocephalic Eye exam: PRESENT: conjunctiva pink, EOMI, PERRLA. ABSENT: scleral icterus Ear exam: PRESENT: normal external ear exam Mouth exam: PRESENT: moist, tongue midline Neck exam: ABSENT: carotid bruit, JVD, lymphadenopathy, thyromegaly Respiratory exam: PRESENT: clear to auscultation berta. ABSENT: rales, rhonchi, wheezes Cardiovascular exam: PRESENT: RRR. ABSENT: diastolic murmur, rubs, systolic murmur GI/Abdominal exam: PRESENT: normal bowel sounds, soft. ABSENT: distended, guarding, mass, organolmegaly, rebound, tenderness Rectal exam: PRESENT: other - erythematous swelling in the left perianal area about 6cm x 4.5cm x 3cm with a small punctum with pus Musculoskeletal exam: PRESENT: ambulatory, deformity, dislocation, full ROM, normal inspection, tenderness, other Neurological exam: PRESENT: alert, awake, oriented to person, oriented to place , oriented to time, oriented to situation, CN II-XII grossly intact. ABSENT: motor sensory deficit Psychiatric exam: PRESENT: appropriate affect, normal mood. ABSENT: homicidal ideation, suicidal ideation Results Laboratory Results: 05/18/17 03:16 Lactic Acid 2.4 H Impressions: Pelvis CT 05/18/17 00:31 IMPRESSION: 3.5 cm region of subcutaneous swelling/edema left paramedial peroneal soft tissues may indicate cellulitis. No evidence of abscess. Assessment & Plan - Diagnosis (1) Type 2 diabetes mellitus Is this a current diagnosis for this admission?: Yes (2) Perianal abscess Is this a current diagnosis for this admission?: Yes - Plan Summary Plan Summary: The patient is admitted NPO For I&D of left perianal abscess
--- NOTE | 2017-05-18 19:34 | Operative Report ---
Operative Report DATE OF SURGERY: 05/18/17 PREOPERATIVE DIAGNOSIS: Left perianal abscess POSTOPERATIVE DIAGNOSIS: Left perianal abscess OPERATION: Incision and drainage of Left perianal abscess SURGEON: Edel Taveras ANESTHESIA: Spinal TISSUE REMOVED OR ALTERED: abscess left perianal area COMPLICATIONS: none ESTIMATED BLOOD LOSS: 20 ml INTRAOPERATIVE FINDINGS: 6cm x 4.5cm x 3cm abscess cavity left perianal area with pus. PROCEDURE: The patient was brought to the operating room and placed on the operating. Spinal anesthesia was administered and she was positioned in lithotomy with legs on Elieser stirrups. The perianal area, perineum and medial thighs were prepped with betadine and sterile drapes laid. A timeout was done. Under sterile aseptic conditions, a cruciate incision was made at the dome of the abscess and taken down to the cavity. pus was evacuated, cultures were taken. Loculi were broken down digitally. The cavity was irrigated with saline nayeli dressing of 1/4 inch iodoform gauze packing, 4x4 and tape applied. The patient tolerated the procedure well, she taken to the PACU in stable condition.
--- NOTE | 2017-05-18 19:48 | PDOC DISCHARGE SUMMARY ---
General - Admit/Disc Date/PCP Admission Date/Primary Care Provider: 05/18/17 02:02 NOHEMI CASAS PA-C Discharge Date: 05/19/17 - Discharge Diagnosis (1) Type 2 diabetes mellitus Is this a current diagnosis for this admission?: Yes (2) Perianal abscess Is this a current diagnosis for this admission?: Yes - Additional Information Resuscitation Status: Full Code Discharge Activity: Activity As Tolerated Prescriptions: Clindamycin HCl 300 mg PO Q6 #40 capsule Docusate Sodium [Colace 100 mg Capsule] 100 mg PO BID #60 capsule Oxycodone HCl/Acetaminophen [Percocet 5-325 mg Tablet] 1 tab PO Q4HP PRN #60 tablet PRN Reason: Home Medications: Clindamycin HCl 300 mg PO Q6 #40 capsule 05/18/17 Docusate Sodium [Colace 100 mg Capsule] 100 mg PO BID #60 capsule 05/18/17 Gabapentin [Neurontin] 600 mg PO HSP PRN 05/18/17 Insulin Glargine,Hum.rec.anlog [Lantus] 50 units SUBCUT PC 05/18/17 Metformin HCl 1,000 mg PO BID 05/18/17 Oxycodone HCl/Acetaminophen [Percocet 5-325 mg Tablet] 1 tab PO Q4HP PRN #60 tablet 05/18/17 History of Present Illness History of Present Illness: CLYDE SALAS is a 31 year old female with a painful left perianal swelling that started 3 days ago. There was minimal discharge from it today. She is diabetic. Hospital Course Hospital Course: She had an I&D of the abscess an dis discharged home with wound dressings and po clindamycin Physical Exam Vital Signs: Temp Pulse Resp BP Pulse Ox 98.3 F 93 20 114/66 96 05/18/17 18:30 05/18/17 18:30 05/18/17 18:30 05/18/17 18:30 05/18/17 18:30 Intake & Output 05/17/17 05/18/17 05/19/17 06:59 06:59 06:59 Intake Total 800 Output Total 25 Balance 775 General appearance: PRESENT: no acute distress, well-developed, well-nourished Head exam: PRESENT: atraumatic, normocephalic Eye exam: PRESENT: conjunctiva pink, EOMI, PERRLA. ABSENT: scleral icterus Neck exam: ABSENT: carotid bruit, JVD, lymphadenopathy, thyromegaly Respiratory exam: PRESENT: clear to auscultation berta. ABSENT: rales, rhonchi, wheezes Cardiovascular exam: PRESENT: RRR. ABSENT: diastolic murmur, rubs, systolic murmur GI/Abdominal exam: PRESENT: normal bowel sounds, soft. ABSENT: distended, guarding, mass, organolmegaly, rebound, tenderness Rectal exam: PRESENT: other - left perianal abscess Neurological exam: PRESENT: alert, awake, oriented to person, oriented to place , oriented to time, oriented to situation, CN II-XII grossly intact. ABSENT: motor sensory deficit Results Laboratory Results: 05/18/17 03:16 Lactic Acid 2.4 H Impressions: Pelvis CT 05/18/17 00:31 IMPRESSION: 3.5 cm region of subcutaneous swelling/edema left paramedial peroneal soft tissues may indicate cellulitis. No evidence of abscess. Plan Discharge Plan: sitz baths bid prn bowel movement twice daily wound dressing changes F/u in wound care clinic Home care nurse for wound care.
[2017-05-18] MEDS ORDERED: ENOXAPARIN SODIUM INJ 40 MG/0.4 ML DISP.SYRIN SUBCUT ONE (20:00)
[2017-05-18] MEDS: OXYCODONE-ACETAMINOPHEN 5-325 MG TABLET PO PRN (22:04)
[2017-05-18] MEDS: METFORMIN HCL 500 MG TABLET PO SCH (22:04)
[2017-05-18] MEDS ORDERED: GLUCAGON,HUMAN RECOMB 1 MG INJ IM PRN (22:21)
[2017-05-18] MEDS ORDERED: DEXTROSE 40% GEL 15 GM TUBE X 2 PO PRN (22:21)
[2017-05-18] MEDS ORDERED: DEXTROSE 50%-WATER SYRINGE 25 GM/50 ML DOSE IV PRN (22:21)
[2017-05-18] MEDS ORDERED: DEXTROSE 40% GEL 15 GM TUBE PO PRN (22:21)
[2017-05-18] MEDS ORDERED: DEXTROSE 50%-WATER SYRINGE 12.5 GM/25 ML DOSE IV PRN (22:21)
[2017-05-18] MEDS: METRONIDAZOLE 500 MG/NS RTU 100 ML IV SCH (22:59)
[2017-05-18] MEDS ORDERED: VANCOMYCIN HCL 1,500 MG in DEXTROSE 5%-WATER 250 ML IV ONE (23:00)
[2017-05-18] MEDS: INSULIN LISPRO 100 UNIT/ML 3 ML VIAL SUBCUT PRN (23:07)
[2017-05-19] MEDS: OXYCODONE-ACETAMINOPHEN 5-325 MG TABLET PO PRN ×2 (02:48→08:39)
[2017-05-19] MEDS: METRONIDAZOLE 500 MG/NS RTU 100 ML IV SCH ×2 (02:49→10:06)
[2017-05-19] MEDS: INSULIN LISPRO 100 UNIT/ML 3 ML VIAL SUBCUT PRN (07:04)
[2017-05-19 07:31] LABS: ABSOLUTE BASOPHILS # (AUTO) 0.1 10^3/uL (0.0-0.2); ABSOLUTE EOSINOPHILS # (AUTO) 0.1 10^3/uL (0.0-0.6); ABSOLUTE LYMPHOCYTES (AUTO) 3.4 10^3/uL (0.5-4.7); ABSOLUTE MONOCYTES (AUTO) 0.9 10^3/uL (0.1-1.4); ABSOLUTE NEUT (AUTO) 11.2 10^3/uL (1.7-8.2); BASOPHILS % (AUTO) 0.9 % (0-2); EOSINOPHILS % (AUTO) 0.9 % (0-6); HEMATOCRIT 40.6 % (36.0-47.0); HEMOGLOBIN 13.8 g/dL (12.0-15.5); LYMPHOCYTES % (AUTO) 21.8 % (13-45); MEAN CORPUSCULAR HEMOGLOBIN 30.6 pg (27.0-33.4); MEAN CORPUSCULAR HGB CONC 34.1 g/dL (32.0-36.0); MEAN CORPUSCULAR VOLUME 90 fl (80-97); MONOCYTES % (AUTO) 5.6 % (3-13); PLATELET COUNT 213 10^3/uL (150-450); RED BLOOD COUNT 4.52 10^6/uL (3.72-5.28); RED CELL DISTRIBUTION WIDTH 12.9 % (11.5-14.0); SEGMENTED NEUTROPHILS % (AUTO) 70.8 % (42-78); TOTAL CELLS COUNTED % (AUTO) 100 %; WHITE BLOOD COUNT 15.8 10^3/uL (4.0-10.5)
[2017-05-19] MEDS ORDERED: INSULIN GLARGINE,HUM.REC.ANLOG 1,000 UNIT/10 ML UNIT SUBCUT SCH (09:00)
--- NOTE | 2017-05-19 09:27 | PDOC PROGRESS REPORT ---
Subjective Progress Note for:: 05/19/17 Subjective:: Patient is seen on rounds. She is resting in bed. She denies any chest pain, shortness of breath or dyspnea. She denies any fevers or chills overnight. She is planning for discharge later this morning. She states she has refills on her diabetes medication and her insurance went into affect on Wednesday. We stressed importance of keeping blood sugars under control so wound will heal. She will follow up with BHAVANA Garcia in [place] Reason For Visit: PERIANAL ABSCESS Physical Exam Vital Signs: Temp Pulse Resp BP Pulse Ox 98.7 F 88 16 118/72 96 05/19/17 08:00 05/19/17 08:00 05/19/17 08:00 05/19/17 08:00 05/19/17 08:00 Intake & Output 05/18/17 05/19/17 05/20/17 06:59 06:59 06:59 Intake Total 1190 1575 Output Total 25 Balance 1165 1575 Weight 132.1 kg General appearance: PRESENT: no acute distress, morbidly obese, well-developed, well-nourished Head exam: PRESENT: atraumatic, normocephalic Eye exam: PRESENT: conjunctiva pink, EOMI, PERRLA. ABSENT: scleral icterus Ear exam: PRESENT: normal external ear exam Mouth exam: PRESENT: moist, tongue midline Neck exam: ABSENT: carotid bruit, JVD, lymphadenopathy, thyromegaly Respiratory exam: PRESENT: accessory muscle use Cardiovascular exam: PRESENT: RRR. ABSENT: diastolic murmur, rubs, systolic murmur Pulses: PRESENT: normal dorsalis pedis pul Vascular exam: PRESENT: normal capillary refill GI/Abdominal exam: PRESENT: normal bowel sounds, soft. ABSENT: distended, guarding, mass, organolmegaly, rebound, tenderness Rectal exam: PRESENT: deferred Extremities exam: PRESENT: full ROM. ABSENT: calf tenderness, clubbing, pedal edema Neurological exam: PRESENT: alert, awake, oriented to person, oriented to place , oriented to time, oriented to situation, CN II-XII grossly intact. ABSENT: motor sensory deficit Psychiatric exam: PRESENT: appropriate affect, normal mood. ABSENT: homicidal ideation, suicidal ideation Skin exam: PRESENT: dry, erythema - Mild erythema along gluteal fold. Surgical dressing intact, warm Results Laboratory Results: 05/19/17 06:47 05/19/17 06:47 WBC 15.8 H RBC 4.52 Hgb 13.8 Hct 40.6 MCV 90 MCH 30.6 MCHC 34.1 RDW 12.9 Plt Count 213 Seg Neutrophils % 70.8 Lymphocytes % 21.8 Monocytes % 5.6 Eosinophils % 0.9 Basophils % 0.9 Absolute Neutrophils 11.2 H Absolute Lymphocytes 3.4 Absolute Monocytes 0.9 Absolute Eosinophils 0.1 Absolute Basophils 0.1 Impressions: Pelvis CT 05/18/17 00:31 IMPRESSION: 3.5 cm region of subcutaneous swelling/edema left paramedial peroneal soft tissues may indicate cellulitis. No evidence of abscess. Assessment & Plan - Diagnosis (1) Perianal abscess Is this a current diagnosis for this admission?: Yes Plan: She will be discharged on Clindamycin, prn pain medication and follow up with surgery clinic. (2) Type 2 diabetes mellitus Qualifiers: Diabetes mellitus complication detail: with other skin complication Is this a current diagnosis for this admission?: Yes Plan: Patient will restart metformin. We discussed need to keep her sugar under control to help wound heal (3) Morbid obesity Is this a current diagnosis for this admission?: Yes Plan: Counseled - Time Time Spent with patient: 15-24 minutes Medications reviewed and adjusted accordingly: Yes Anticipated discharge: Home
[2017-05-19] MEDS ORDERED: ENOXAPARIN SODIUM INJ 40 MG/0.4 ML DISP.SYRIN SUBCUT SCH (10:00)
[2017-05-19] MEDS ORDERED: DOCUSATE SODIUM 100 MG CAPSULE PO SCH (10:00)
[2017-05-19 11:28] VITALS: BP 139/89
[2017-05-19] MEDS: METFORMIN HCL 500 MG TABLET PO SCH (12:20)
== END 2017-05-19 13:02 | disposition home or self-care (01) | DRG 348 ==
LOC: ER 19:08 → EH 05-18 02:02 → 2N 05-18 13:34
PROVIDERS: ATTEND Surgery
PROC: 0D9Q0ZZ Drainage of Anus, Open Approach (ICD-10-PCS; principal; 2017-05-18 19:30)
DX: K61.0 Anal abscess (principal); Z68.42 Body mass index [BMI] 45.0-49.9, adult; E66.01 Morbid (severe) obesity due to excess calories; T36.8X5A Adverse effect of other systemic antibiotics, initial encounter; Y92.230 Patient room in hospital as the place of occurrence of the external cause; F17.210 Nicotine dependence, cigarettes, uncomplicated; E11.9 Type 2 diabetes mellitus without complications; K21.9 Gastro-esophageal reflux disease without esophagitis; M19.90 Unspecified osteoarthritis, unspecified site; M10.9 Gout, unspecified; Z82.49 Family history of ischemic heart disease and other diseases of the circulatory system; Z82.61 Family history of arthritis; Z79.4 Long term (current) use of insulin; Z87.81 Personal history of (healed) traumatic fracture; Z80.9 Family history of malignant neoplasm, unspecified
CPT/HCPCS: 36415; 72193; 80053; 82803; 82962; 83605; 84703; 85025; 87040; 87070; 87075; 87077; 87186; 87205; 902; 96365; 96368; 96375; 99285; A6266; J1170; J1200; J1650; J1815; J2250; J2405; J2704; J3010; J3370; J3490; J7030; J7060

== ENCOUNTER → 2017-06-12 | Outpatient (CLI) | payer BC ==
--- NOTE | 2017-06-12 15:30 | RADIOLOGY REPORT (SQ) ---
EXAM DESCRIPTION: MRI RT LOWER JOINT WITHOUT COMPLETED DATE/TIME: 06/12/2017 12:53 pm REASON FOR STUDY: SPRAIN OF ANTERIOR CRUCIATE LIGAMENT OR RIGHT KNEE S83.511A SPRAIN OF ANTERIOR CR UCIATE LIGAMENT OF RIGHT KNEE, COMPARISON: Recent radiographs from April. TECHNIQUE: Rightknee images acquired and stored on PACS. Multiplanar images include fat sensitive s equences as T1, water sensitive sequences as FST2 or STIR, cartilage sensitive sequences as FSPD, and gradient echo sequences. LIMITATIONS: None. FINDINGS: JOINT AND BURSAE: Small-moderate effusion. No loose bodies. BONE CORTEX AND MARROW: No alteration of signal to suggest marrow replacement. No worrisome bone lesi ons. No occult fracture. ACL: Complete disruption. Ill-defined anteriorly displaced tissue probably represents ACL stump. PCL: Intact. Probable mild degenerative signal. MCL: Intact. LCL: Intact. MEDIAL MENISCUS: No tears. No abnormal signal. LATERAL MENISCUS: No tears. No abnormal signal. MEDIAL COMPARTMENT: Cartilage preserved. No bone bruises or reactive marrow edema. No osteophytes. LATERAL COMPARTMENT: Cartilage preserved. No bone bruises or reactive marrow edema. No osteophytes. PATELLA: No chondromalacia. No subchondral cysts. Medial and lateral retinacula intact. EXTENSOR MECHANISM: Intact. Quadriceps and patella tendons normal. SOFT TISSUES: Adjacent muscles and subcutaneous tissues normal. Normal flow void in popliteal artery and vein. OTHER: No other significant finding. IMPRESSION: 1. Complete ACL tear. 2. Collateral ligaments intact. No meniscus tear. No chondral lesions. TECHNICAL DOCUMENTATION: JOB ID: [id number] [employer]- All Rights Reserved Reading location - IP/workstation name: [email or web address]
== END ==
LOC: RAD 11:51
PROVIDERS: ATTEND Family Medicine
DX: S83.511A Sprain of anterior cruciate ligament of right knee, initial encounter (principal); X58.XXXA Exposure to other specified factors, initial encounter

== ENCOUNTER 2017-08-12 13:26 | Emergency (ER) | payer BC ==
[2017-08-12] MEDS ORDERED: ASPIRIN 81 MG TABLET, CHEWABLE PO ONE (14:31)
--- NOTE | 2017-08-12 14:31 | ER Document Report ---
ED Medical Screen (RME) - General Chief Complaint: Flu Symptoms Stated Complaint: COLD SYMPTOMS Time Seen by Provider: 08/12/17 14:22 Mode of Arrival: Ambulatory Information source: Patient Notes: 31-year-old female complaining of all of her headache posterior occipital neck pain and fever Wednesday and Wednesday. Today she started having chest tightness with inspiration that is midline retrosternal to the left side that radiates through to the back. She is a type I diabetic and obese. She saw Nohemi zendejas her primary care doctor who found right upper quadrant tenderness and wanted her to be sent to the emergency room to be worked up for gallbladder. I discussed this case with Khadar and ordered according to his recommendations. TRAVEL OUTSIDE OF THE [place] IN LAST 30 DAYS: No - Related Data Allergies/Adverse Reactions: No Known Allergies Allergy (Verified 08/10/16 11:18) Past Medical History - Social History Chew tobacco use (# tins/day): No Frequency of alcohol use: None Drug Abuse: None - Past Medical History Cardiac Medical History: Reports: Hx Hypertension Pulmonary Medical History: Neurological Medical History: Endocrine Medical History: Reports: Hx Diabetes Mellitus Type 2 Renal/ Medical History: Denies: Hx Peritoneal Dialysis GI Medical History: Reports: Hx Gastroesophageal Reflux Disease Musculoskeltal Medical History: Reports Hx Arthritis, Reports Hx Gout, Reports Hx Musculoskeletal Deformity, Reports Hx Musculoskeletal Trauma Psychiatric Medical History: Denies: Hx Depression Traumatic Medical History: Reports: Hx Fractures - Humerus Past Surgical History: Reports: Hx Oral Surgery - [place] teeth, Hx Orthopedic Surgery - Back in 2012. 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
[2017-08-12 15:11] LABS: AMORPHOUS SEDIMENT,URINE TRACE /HPF; APPEARANCE,URINE CLOUDY; BILIRUBIN,URINE NEGATIVE (NEGATIVE); COLOR,URINE AMBER; GLUCOSE, URINE 50 mg/dL (NEGATIVE); KETONES,URINE NEGATIVE (NEGATIVE); LEUKOCYTE ESTERASE,URINE LARGE (NEGATIVE); NITRITE,URINE NEGATIVE (NEGATIVE); PROTEIN,URINE 100 mg/dL (NEGATIVE); URINE SPECIFIC GRAVITY 1.016
[2017-08-12 15:16] LABS: A TYPE INFLUENZA AG NEGATIVE (NEGATIVE); B INFLUENZA AG NEGATIVE (NEGATIVE)
[2017-08-12 15:26] LABS: ABSOLUTE BASOPHILS # (AUTO) 0.1 10^3/uL (0.0-0.2); ABSOLUTE EOSINOPHILS # (AUTO) 0.1 10^3/uL (0.0-0.6); ABSOLUTE LYMPHOCYTES (AUTO) 2.8 10^3/uL (0.5-4.7); ABSOLUTE MONOCYTES (AUTO) 0.7 10^3/uL (0.1-1.4); ABSOLUTE NEUT (AUTO) 5.1 10^3/uL (1.7-8.2); BASOPHILS % (AUTO) 0.7 % (0-2); EOSINOPHILS % (AUTO) 1.7 % (0-6); HEMOGLOBIN 13.5 g/dL (12.0-15.5); LYMPHOCYTES % (AUTO) 31.7 % (13-45); MEAN CORPUSCULAR HEMOGLOBIN 30.9 pg (27.0-33.4); MEAN CORPUSCULAR HGB CONC 35.5 g/dL (32.0-36.0); MEAN CORPUSCULAR VOLUME 87 fl (80-97); MONOCYTES % (AUTO) 7.5 % (3-13); PLATELET COUNT 182 10^3/uL (150-450); RED BLOOD COUNT 4.36 10^6/uL (3.72-5.28); RED CELL DISTRIBUTION WIDTH 13.3 % (11.5-14.0); SEGMENTED NEUTROPHILS % (AUTO) 58.4 % (42-78); TOTAL CELLS COUNTED % (AUTO) 100 %; WHITE BLOOD COUNT 8.8 10^3/uL (4.0-10.5)
[2017-08-12 15:51] LABS: ALANINE AMINOTRANSFERASE 39 U/L (9-52); ALBUMIN 3.9 g/dL (3.5-5.0); ALKALINE PHOSPHATASE 47 U/L (38-126); ANION GAP 16 (5-19); ASPARTATE AMINO TRANSFERASE 26 U/L (14-36); BILIRUBIN,DIRECT 0.5 mg/dL (0.0-0.4); BILIRUBIN,TOTAL 0.8 mg/dL (0.2-1.3); BLOOD UREA NITROGEN 6 mg/dL (7-20); CARBON DIOXIDE 24 mmol/L (22-30); CHLORIDE 100 mmol/L (98-107); CREATINE KINASE 56 U/L (30-135); GLUCOSE 193 mg/dL (75-110); POTASSIUM 3.6 mmol/L (3.6-5.0); SODIUM 139.6 mmol/L (137-145)
--- NOTE | 2017-08-12 16:04 | RADIOLOGY REPORT (SQ) ---
EXAM DESCRIPTION: CHEST SINGLE VIEW COMPLETED DATE/TIME: 08/12/2017 3:39 pm REASON FOR STUDY: chest pain COMPARISON: 07/24/2017 EXAM PARAMETERS: NUMBER OF VIEWS: One view. TECHNIQUE: Single frontal radiographic view of the chest acquired. RADIATION DOSE: NA LIMITATIONS: None. FINDINGS: LUNGS AND PLEURA: No opacities, masses or pneumothorax. No pleural effusion. MEDIASTINUM AND HILAR STRUCTURES: No masses. Contour normal. HEART AND VASCULAR STRUCTURES: Heart normal in size. Normal vasculature. BONES: No acute findings. HARDWARE: None in the chest. OTHER: No other significant finding. IMPRESSION: NO ACUTE RADIOGRAPHIC FINDING IN THE CHEST. TECHNICAL DOCUMENTATION: JOB ID: [id number] [employer]- All Rights Reserved Reading location - IP/workstation name: [email or web address]
[2017-08-12 16:11] LABS: CREATINE KINASE MB < 0.22 ng/mL (<4.55); TROPONIN I < 0.012 ng/mL
[2017-08-12] MEDS ORDERED: NITROFURANTOIN MONOHYD/M-CRYST 100 MG CAPSULE PO ONE (16:29)
--- NOTE | 2017-08-12 17:03 | RADIOLOGY REPORT (SQ) ---
EXAM DESCRIPTION: U/S ABDOMEN LIMITED W/O DOP COMPLETED DATE/TIME: 08/12/2017 4:53 pm REASON FOR STUDY: ruq abd tender COMPARISON: None. TECHNIQUE: Dynamic and static grayscale images acquired of the abdomen and recorded on PACS. Additio yves selected color Doppler and spectral images recorded. LIMITATIONS: None. FINDINGS: PANCREAS: Not seen. LIVER: Poorly seen. 22.7 cm. Increased echogenicity. LIVER VASCULATURE: Normal directional flow of the main portal vein and hepatic veins. GALLBLADDER: Multiple gallstones are suggested. ULTRASOUND-DETECTED AVENDANO'S SIGN: Negative. INTRAHEPATIC DUCTS AND COMMON DUCT: Common bile duct is borderline at 6 mm. INFERIOR VENA CAVA: Not seen. AORTA: No aneurysm. RIGHT KIDNEY: Normal size, 12.9 cm. Normal echogenicity. No solid or suspicious masses. No hydroneph rosis. No calcifications. PERITONEAL AND RIGHT PLEURAL SPACE: No ascites or effusions. OTHER: No other significant findings. IMPRESSION: 1. Fatty infiltration of the liver. Hepatomegaly. 2. Cholelithiasis with borderline common bile duct. TECHNICAL DOCUMENTATION: JOB ID: [id number] All Rights Reserved Reading location - IP/workstation name: [email or web address]
[2017-08-12] MEDS ORDERED: LIDOCAINE 5% (700 MG) TRANSDERMAL ADH..PATCH TP ONE (17:26)
--- NOTE | 2017-08-12 17:31 | ER Document Report ---
ED General - General Chief Complaint: Flu Symptoms Stated Complaint: COLD SYMPTOMS Time Seen by Provider: 08/12/17 14:22 Mode of Arrival: Ambulatory TRAVEL OUTSIDE OF THE [place] IN LAST 30 DAYS: No - HPI Patient complains to provider of: Multiple complaints Notes: Patient coming in for headaches ongoing for the last few days fevers and chills no nausea no vomiting patient states followed up with her PCP nurse practitioner Nohemi zendejas found to have some right upper quadrant tenderness therefore sent to the ER for further evaluation. Patient resting comfortably upon my evaluation nontoxic looking. Patient states night prior to today she had pizza no exacerbation of her abdominal pain patient states that is tender to touch denies nausea vomiting diarrhea. Patient states positive dysuria patient states had a fever of 101 few days ago patient is currently afebrile. Patient is diabetic patient is obese. Again patient resting comfortably upon my evaluation denies chest pain. Headache is in the occipital region hurting more whenever she moves her head - Related Data Allergies/Adverse Reactions: No Known Allergies Allergy (Verified 08/10/16 11:18) Past Medical History - General Information source: Patient - Social History Smoking Status: Never Smoker Chew tobacco use (# tins/day): No Frequency of alcohol use: None Drug Abuse: None Family History: Arthritis, DM, Hypertension, Malignancy. denies: CAD, COPD, CVA , Hyperlipidemia, Thyroid Disfunction Patient has suicidal ideation: No Patient has homicidal ideation: No - Past Medical History Cardiac Medical History: Reports: Hx Hypertension Pulmonary Medical History: Neurological Medical History: Endocrine Medical History: Reports: Hx Diabetes Mellitus Type 2 Renal/ Medical History: Denies: Hx Peritoneal Dialysis GI Medical History: Reports: Hx Gastroesophageal Reflux Disease Musculoskeltal Medical History: Reports Hx Arthritis, Reports Hx Gout, Reports Hx Musculoskeletal Deformity, Reports Hx Musculoskeletal Trauma Psychiatric Medical History: Denies: Hx Depression Traumatic Medical History: Reports: Hx Fractures - Humerus Past Surgical History: Reports: Hx Oral Surgery - [place] teeth, Hx Orthopedic Surgery - Back in 2012. 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 - Immunizations Immunizations up to date: Yes Hx Diphtheria, Pertussis, Tetanus Vaccination: Yes Review of Systems - Review of Systems Constitutional: Other - Abdominal pain headache fevers chills EENT: No symptoms reported Cardiovascular: No symptoms reported Respiratory: No symptoms reported Gastrointestinal: No symptoms reported Genitourinary: No symptoms reported Female Genitourinary: No symptoms reported Musculoskeletal: No symptoms reported Skin: No symptoms reported Hematologic/Lymphatic: No symptoms reported Neurological/Psychological: No symptoms reported Physical Exam - Vital signs Vitals: Temp Pulse Resp BP Pulse Ox 99.2 F 88 20 134/90 H 97 08/12/17 13:42 08/12/17 13:42 08/12/17 13:42 08/12/17 13:42 08/12/17 13:42 Interpretation: Normal - General General appearance: Appears well, Alert - HEENT Head: Normocephalic, Atraumatic Eyes: Normal Conjunctiva: Normal Cornea: Normal Pupils: PERRL - Respiratory Respiratory status: No respiratory distress Chest status: Nontender Breath sounds: Normal Chest palpation: Normal - Cardiovascular Rhythm: Regular Heart sounds: Normal auscultation Murmur: No - Abdominal Inspection: Normal Distension: No distension Bowel sounds: Normal Tenderness: Tender - Mild tenderness to the right upper quadrant no Pereira sign. No: McBurney's point, Pereira's sign, Guarding, Rebound Organomegaly: No organomegaly - Back Back: Normal, Nontender - Extremities General upper extremity: Normal inspection, Nontender, Normal color, Normal ROM , Normal temperature General lower extremity: Normal inspection, Nontender, Normal color, Normal ROM , Normal temperature, Normal weight bearing. No: Celia's sign - Neurological Neuro grossly intact: Yes Cognition: Normal Orientation: AAOx4 [place] Coma Scale Eye Opening: Spontaneous [place] Coma Scale Verbal: Oriented [place] Coma Scale Motor: Obeys Commands [place] Coma Scale Total: 15 Speech: Normal Motor strength normal: LUE, RUE, LLE, RLE Sensory: Normal - Psychological Associated symptoms: Normal affect, Normal mood - Skin Skin Temperature: Warm Skin Moisture: Dry Skin Color: Normal Course - Re-evaluation Re-evalutation: 08/12/17 22:35 Urinalysis consistent with a UTI laboratory studies show no leukocytosis Chem- 12 shows no elevation in bili or LFTs suggestive of a obstructive process. Ultrasound does show gallstones. Patient remained stable here in the ER. Patient headache upon description is more consistent with a tension headache. Did discuss with the patient about her results recommend patient follow-up with outpatient surgery recommend patient use lidocaine patches Tylenol and Motrin for her pain control and follow-up with her PCP. Patient states understanding was discharged home. The patient presents with abdominal pain without signs of peritonitis or other life-threatening or serious etiology. The patient appears stable for discharge and has been instructed to return immediately if the symptoms worsen in any way, or in 8-12hr if not improved for re-evaluation. The patient has been instructed to return if the symptoms worsen or change in any way. 08/12/17 22:36 - Vital Signs Vital signs: Temp Pulse Resp BP Pulse Ox 99.3 F 81 16 124/83 96 08/12/17 17:39 08/12/17 17:39 08/12/17 17:39 08/12/17 17:39 08/12/17 17:39 - Laboratory Result Diagrams: 08/12/17 15:10 08/12/17 15:10 Laboratory results interpreted by me: 08/12/17 08/12/17 14:36 15:10 BUN 6 L Creatinine 0.40 L Glucose 193 H Direct Bilirubin 0.5 H Urine Protein 100 H Urine Glucose (UA) 50 H Urine Blood SMALL H Urine Urobilinogen 4.0 H Ur Leukocyte Esterase LARGE H Discharge - Discharge Clinical Impression: Gallstones, Tension headache, Morbid obesity UTI (urinary tract infection) Qualifiers: Urinary tract infection type: site unspecified Hematuria presence: without hematuria Qualified Code(s): N39.0 - Urinary tract infection, site not specified Condition: Good Disposition: HOME, SELF-CARE Instructions: Nitrofurantoin ([facility]), Surgeon, Urinary Tract Infection ([facility]) Additional Instructions: Your ultrasound today shows her gallbladder has gallstones within it. Whenever he eats anything it has a high amount of fat grease or oil your gallbladder was agrees that she secrete my office to help digest this and sometimes the stones to get in the way and cause pain. At this time do not see any signs of inflammation of the gallbladder or any signs to indicate that she will need emergent gallbladder removal. Recommend eating a low-fat diet following up with your primary care and the surgical clinic provided. Continue home medications. Your headache looks to be a tension headache would recommend Tylenol Motrin for that he can also try [id number] lidocaine patches such as the patch that we gave you here in the ER if you do receive relief. Your urine does show signs of urinary tract infection recommend continuing with the Macrobid as prescribed we discontinue urine for culture and will have analysis in approximately 72 hours. If we do not call you there is no need to change her antibiotic and continue the Macrobid as prescribed. Recommend Tylenol Motrin for your pain make sure that she follow-up as stated return to the ER for any worsening symptoms Prescriptions: Ibuprofen [Motrin 800 mg Tablet] 800 mg PO Q8H PRN #30 tab PRN Reason: Nitrofurantoin Monohyd/M-Cryst [Macrobid 100 mg Capsule] 100 mg PO BID #20 capsule Referrals: NOHEMI ZENDEJAS PA-C [Primary Care Provider] - Follow up as needed
[2017-08-12 18:16] VITALS: BP 124/83
--- NOTE | 2017-08-12 19:24 | EKG REPORT ---
SEVERITY:- NORMAL ECG - SINUS RHYTHM : Confirmed by: Gilbert Alvarado MD 12-Aug-2017 19:23:40
== END 2017-08-12 17:40 | disposition home or self-care (01) ==
LOC: ER 13:26
DX: K80.80 Other cholelithiasis without obstruction (principal); N39.0 Urinary tract infection, site not specified; G44.209 Tension-type headache, unspecified, not intractable; R10.11 Right upper quadrant pain; I10 Essential (primary) hypertension; E66.01 Morbid (severe) obesity due to excess calories; E11.9 Type 2 diabetes mellitus without complications
CPT/HCPCS: 93005; 99284; 36415; 87086; 82553; 82550; 84703; 85025; 87088; 80053; 81001; 84484; 87186; 87804; 71045; 76705; 93010; J8499

== ENCOUNTER 2019-01-13 18:19 | Emergency (ER) | payer BC ==
--- NOTE | 2019-01-13 18:56 | ER Document Report ---
ED Medical Screen (RME) - General Chief Complaint: Abdominal Pain Stated Complaint: PELVIC PAIN Time Seen by Provider: 01/13/19 18:49 Primary Care Provider: NOHEMI CASAS PA-C [Primary Care Provider] - Follow up as needed TRAVEL OUTSIDE OF THE [place] IN LAST 30 DAYS: No - HPI Notes: 01/13/19 18:55 Patient is a 33-year-old female with history of B-cell lymphoma ('watch and wait') and rt ovarian cysts who presents complaining of right lower pelvic pain over the past 3 days has been relatively constant. Denies . No vaginal bleeding or significant discharge. No fever. I have treated and performed a rapid initial assessment of this patient. A comprehensive ED assessment and evaluation of the patient, analysis of test results and completion of medical decision making process will be conducted by additional ED providers. PHYSICAL EXAMINATION: GENERAL: Well-appearing, well-nourished and in no acute distress. A&Ox4. Answers questions appropriately. Abd: + mild tenderness rt lower pelvic area - Related Data Allergies/Adverse Reactions: No Known Allergies Allergy (Verified 08/10/16 11:18) Past Medical History - Past Medical History Cardiac Medical History: Reports: Hx Hypertension Pulmonary Medical History: Neurological Medical History: Endocrine Medical History: Reports: Hx Diabetes Mellitus Type 2 Renal/ Medical History: Denies: Hx Peritoneal Dialysis GI Medical History: Reports: Hx Gastroesophageal Reflux Disease Musculoskeltal Medical History: Reports Hx Arthritis, Reports Hx Gout, Reports Hx Musculoskeletal Deformity, Reports Hx Musculoskeletal Trauma Psychiatric Medical History: Denies: Hx Depression Traumatic Medical History: Reports: Hx Fractures - Humerus Past Surgical History: Reports: Hx Oral Surgery - [place] teeth, Hx Orthopedic Surgery - Back in 2012. 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
[2019-01-13 19:32] LABS: ABSOLUTE BASOPHILS # (AUTO) 0.1 10^3/uL (0.0-0.2); ABSOLUTE EOSINOPHILS # (AUTO) 0.3 10^3/uL (0.0-0.6); ABSOLUTE LYMPHOCYTES (AUTO) 4.3 10^3/uL (0.5-4.7); ABSOLUTE MONOCYTES (AUTO) 0.6 10^3/uL (0.1-1.4); ABSOLUTE NEUT (AUTO) 7.2 10^3/uL (1.7-8.2); BASOPHILS % (AUTO) 0.6 % (0-2); EOSINOPHILS % (AUTO) 2.2 % (0-6); HEMATOCRIT 41.9 % (36.0-47.0); HEMOGLOBIN 14.5 g/dL (12.0-15.5); LYMPHOCYTES % (AUTO) 34.6 % (13-45); MEAN CORPUSCULAR HEMOGLOBIN 30.7 pg (27.0-33.4); MEAN CORPUSCULAR HGB CONC 34.7 g/dL (32.0-36.0); MEAN CORPUSCULAR VOLUME 89 fl (80-97); MONOCYTES % (AUTO) 4.8 % (3-13); PLATELET COUNT 197 10^3/uL (150-450); RED BLOOD COUNT 4.73 10^6/uL (3.72-5.28); RED CELL DISTRIBUTION WIDTH 12.6 % (11.5-14.0); SEGMENTED NEUTROPHILS % (AUTO) 57.8 % (42-78); TOTAL CELLS COUNTED % (AUTO) 100 %; WHITE BLOOD COUNT 12.4 10^3/uL (4.0-10.5)
[2019-01-13 19:48] LABS: ALBUMIN 4.2 g/dL (3.5-5.0); ALKALINE PHOSPHATASE 50 U/L (38-126); ANION GAP 12 (5-19); ASPARTATE AMINO TRANSFERASE 29 U/L (14-36); BILIRUBIN,DIRECT 0.2 mg/dL (0.0-0.4); BILIRUBIN,TOTAL 0.6 mg/dL (0.2-1.3); BLOOD UREA NITROGEN 9 mg/dL (7-20); CALCIUM 9.7 mg/dL (8.4-10.2); CARBON DIOXIDE 25 mmol/L (22-30); CHLORIDE 99 mmol/L (98-107); GLUCOSE 309 mg/dL (75-110); POTASSIUM 3.8 mmol/L (3.6-5.0); TOTAL PROTEIN 7.2 g/dL (6.3-8.2)
[2019-01-13 20:20] LABS: APPEARANCE,URINE CLOUDY; BILIRUBIN,URINE NEGATIVE (NEGATIVE); COLOR,URINE YELLOW; GLUCOSE, URINE >=500 mg/dL (NEGATIVE); KETONES,URINE TRACE mg/dL (NEGATIVE); LEUKOCYTE ESTERASE,URINE NEGATIVE (NEGATIVE); NITRITE,URINE NEGATIVE (NEGATIVE); PROTEIN,URINE 100 mg/dL (NEGATIVE); URINE SPECIFIC GRAVITY 1.027
--- NOTE | 2019-01-13 20:25 | RADIOLOGY REPORT (SQ) ---
EXAM DESCRIPTION: US PELVIS TRANSVAGINAL COMPLETED DATE/TME: 01/13/2019 18:55 CLINICAL HISTORY: 33 years Female rt pelvic pain COMPARISON: None. TECHNIQUE: Transvaginal duplex imaging performed to evaluate the pelvis. FINDINGS: Cervix measures 1.9 cm and appears closed. The uterus measures 8.6 x 3.4 cm. Right ovary is normal in size measuring 4 x 2.8 cm. Simple appearing cyst measures 1.8 x 1.7 cm. This is almost certainly benign and no follow-up is recommended. Endometrium measures 11 mm. Left ovary is not seen. Normal blood flow to the right ovary. IMPRESSION: Simple appearing right ovarian cyst. This is almost certainly benign and no follow-up is recommended. Nonvisualization of the left ovary.
[2019-01-13] MEDS ORDERED: NORMAL SALINE 1000 ML 1,000 ML IV ONE (21:03)
[2019-01-13] MEDS ORDERED: OXYCODONE-ACETAMINOPHEN 5-325 MG TABLET PO ONE (21:03)
[2019-01-13] MEDS ORDERED: HYDROCODONE/ACETAMINOPHEN 5-325 MG (6 TAB/ER DISP) PO PRN (21:03)
[2019-01-13] MEDS ORDERED: PROMETHAZINE HCL 25 MG TABLET PO ONE (21:03)
[2019-01-13] MEDS ORDERED: PROMETHAZINE HCL INJ 25 MG/1 ML VIAL ONE (21:05)
--- NOTE | 2019-01-13 21:06 | ER Document Report ---
ED GI/ - General Chief Complaint: Pelvic Pain Stated Complaint: PELVIC PAIN Time Seen by Provider: 01/13/19 18:49 Primary Care Provider: NOHEMI CASAS PA-C [Primary Care Provider] - Follow up as needed Notes: Patient is a 33-year-old female that comes emergency department for chief complaint of pain in her right pelvic area there is occasionally very sharp, pain is been going on for the past 3 or 4 days now. She does have a history of ovarian cyst and states this feels the same. She denies vaginal bleeding or discharge, dysuria, flank pain, vomiting, fever, other locations of abdominal pain. Past medical history of type 2 diabetes on metformin and Lantus, states she has not been taking her medications as prescribed. 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 She denies abdominal surgeries. TRAVEL OUTSIDE OF THE [place] IN LAST 30 DAYS: No - Related Data Allergies/Adverse Reactions: No Known Allergies Allergy (Verified 08/10/16 11:18) Past Medical History - General Information source: Patient - Social History Smoking Status: Current Every Day Smoker Chew tobacco use (# tins/day): No Frequency of alcohol use: None Drug Abuse: None Lives with: Family Family History: Arthritis, DM, Hypertension, Malignancy. denies: CAD, COPD, CVA, Hyperlipidemia, Thyroid Disfunction Patient has suicidal ideation: No Patient has homicidal ideation: No - Past Medical History Cardiac Medical History: Reports: Hx Hypertension Pulmonary Medical History: Neurological Medical History: Endocrine Medical History: Reports: Hx Diabetes Mellitus Type 2 Renal/ Medical History: Denies: Hx Peritoneal Dialysis GI Medical History: Reports: Hx Gastroesophageal Reflux Disease Musculoskeletal Medical History: Reports Hx Arthritis, Reports Hx Gout, Reports Hx Musculoskeletal Deformity, Reports Hx Musculoskeletal Trauma Psychiatric Medical History: Denies: Hx Depression Traumatic Medical History: Reports: Hx Fractures - Humerus Past Surgical History: Reports: Hx Oral Surgery - [place] teeth, Hx Orthopedic Surgery - Back in 2012. 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 - Immunizations Immunizations up to date: Yes Hx Diphtheria, Pertussis, Tetanus Vaccination: Yes Review of Systems - Review of Systems Constitutional: No symptoms reported EENT: No symptoms reported Cardiovascular: No symptoms reported Respiratory: No symptoms reported Gastrointestinal: See HPI Genitourinary: See HPI Female Genitourinary: See HPI Musculoskeletal: No symptoms reported Skin: No symptoms reported Hematologic/Lymphatic: No symptoms reported Neurological/Psychological: No symptoms reported Physical Exam - Vital signs Vitals: Temp Pulse Resp BP Pulse Ox 98.7 F 88 18 176/98 H 98 01/13/19 18:36 01/13/19 18:36 01/13/19 18:36 01/13/19 18:36 01/13/19 18:36 - Notes Notes: GENERAL: Alert, interacts well. No acute distress. HEAD: Normocephalic, atraumatic. EYES: Pupils equal, round, and reactive to light. Extraocular movements intact. ENT: Oral mucosa moist, tongue midline. Oropharynx unremarkable. Airway patent. LUNGS: Clear to auscultation bilaterally, no wheezes, rales, or rhonchi. No respiratory distress. HEART: Regular rate and rhythm. No murmur ABDOMEN: Minimal right pelvic area tenderness, no specific McBurney's tenderness, very benign abdomen otherwise, no guarding, no rigidity, no rebound tenderness. GENITOURINARY: Deferred EXTREMITIES: Moves all 4 extremities spontaneously. No edema, normal radial and dorsalis pedis pulses bilaterally. No cyanosis. BACK: no cervical, thoracic, lumbar midline tenderness. No saddle anesthesia, normal distal neurovascular exam. Moves all extremities in full range of motion. NEUROLOGICAL: Alert and oriented x3. Normal speech. Cranial nerves II through XII grossly intact. PSYCH: Normal affect, normal mood. SKIN: Warm, dry, normal turgor. No rashes or lesions noted. Course - Re-evaluation Re-evalutation: CBC unremarkable. Chemistry shows hyperglycemia without acidosis. Urinalysis shows dehydration and glucose. Ultrasound from triage reviewed and shows right- sided cyst which is small and not complex. No evidence of torsion, good blood supply. No other concerning findings. I did discuss patient's poor glucose control and blood pressure, she states that she will try to do better and follow-up with primary care in regard to this. She was given IV fluids. Patient is well-appearing on exam, mild right-sided pelvic tenderness, discussed pelvic exam but this was declined. No follow-up was recommended, patient was given some symptom management, discussed primary care follow-up and return precautions. Patient states appreciation and agreement. Stable time of discharge. - Vital Signs Vital signs: Temp Pulse Resp BP Pulse Ox 97.7 F 74 21 H 145/98 H 99 10/11/19 22:05 01/13/19 22:05 01/13/19 22:05 01/13/19 22:05 01/13/19 22:05 - Laboratory Result Diagrams: 01/13/19 19:11 01/13/19 19:11 Laboratory results interpreted by me: 01/13/19 01/13/19 01/13/19 19:11 19:11 20:00 WBC 12.4 H Sodium 135.5 L Creatinine 0.40 L Glucose 309 H Urine Protein 100 H Urine Glucose (UA) >=500 H Urine Ketones TRACE H Urine Urobilinogen 2.0 H Discharge - Discharge Clinical Impression: Pelvic pain Ovarian cyst Qualifiers: Laterality: right Qualified Code(s): N83.201 - Unspecified ovarian cyst, right side Condition: Stable Disposition: HOME, SELF-CARE Additional Instructions: There is a 2 cm ovarian cyst on the right side and the location of your pain. This is most likely the cause of your pain. This does not require follow-up and should resolve with time. Take the provided pain medication if needed especially to help you sleep, otherwise take Tylenol or ibuprofen. Your work-up also shows elevated blood sugar and dehydration, you have been rehydrated, resume your normal prescribed medications for diabetes. Follow-up with primary care for additional management. Return if you worsen including severe pain, vomiting, fever, or any other concerning symptoms. Referrals: NOHEMI CASAS PA-C [Primary Care Provider] - Follow up as needed
[2019-01-13 22:06] VITALS: BP 145/98
== END 2019-01-13 22:05 | disposition home or self-care (01) ==
LOC: ER 18:19
DX: N83.201 Unspecified ovarian cyst, right side (principal); R10.2 Pelvic and perineal pain; F17.200 Nicotine dependence, unspecified, uncomplicated; E11.9 Type 2 diabetes mellitus without complications; I10 Essential (primary) hypertension
CPT/HCPCS: 36415; 85025; 81025; 80053; 81001; 76830; 93976; J7030; 96360; 99284

== ENCOUNTER → 2019-01-23 | Outpatient (CLI) | payer BC ==
--- NOTE | 2019-01-24 10:02 | RADIOLOGY REPORT (SQ) ---
EXAM DESCRIPTION: U/S EXTREMITY NONVASCULAR COMP COMPLETED DATE/TIME: 01/23/2019 5:49 pm REASON FOR STUDY: R10.31 RIGHT LOWER QUADRANT PAIN R09.89 OTH SYMPTOMS AND SIGNS INVOLVING THE CIRC AND RESP SY R10.31 RIGHT LOWER QUADRANT PAIN COMPARISON: None. TECHNIQUE: Dynamic and static grayscale images acquired of the localized site of clinical concern an d recorded on PACS. Additional selected color Doppler and spectral images recorded. SITE OF CONCERN: Right lower quadrant of the abdomen/Right on region. LIMITATIONS: None. FINDINGS: The right lower quadrant of the abdomen was scanned. No evidence of fascia defect to sugg est hernia. The right inguinal region was also scanned. Several lymph nodes are identified which measure 2.9 x 1 .7 x 1.0 cm, 1.7 x 2 0.1 x 0.8 cm x 1.8 x 1.3 x 0.7 cm. The lymph nodes contain a hilus of fat and l ikely on a benign reactive basis. These findings correlate to the CT pelvis examination dated 018. IMPRESSION: 1. No evidence of hernia in the right lower quadrant of the abdomen. 2. Several lymph nodes in the right inguinal region as above, findings correlate to the CT pelvis ex amination dated 05/18/2017. These findings may be on a benign reactive basis. TECHNICAL DOCUMENTATION: JOB ID: [id number] [employer]- All Rights Reserved Reading location - IP/workstation name: [email or web address]
== END ==
LOC: SP 14:33
PROVIDERS: ATTEND Physician Assistant
DX: R09.89 Other specified symptoms and signs involving the circulatory and respiratory systems (principal); R10.31 Right lower quadrant pain
CPT/HCPCS: 76881; 93925

== ENCOUNTER 2019-06-29 19:23 | Emergency (ER) | payer BC ==
--- NOTE | 2019-06-29 19:38 | ER Document Report ---
ED Medical Screen (RME) - General Chief Complaint: Abscess Stated Complaint: POSS ABSCESS ON RIGHT PELVIC Primary Care Provider: NOHEMI CASAS PA-C [Primary Care Provider] - Follow up as needed Notes: Patient is a 33-year-old white female with past medical history of diabetes and peripheral neuropathy who presents to the emergency department the chief complaint of abscess formation to the right inguinal region. She states is been a little less than a week now. She reports last time she had some like this on her abdomen she had to be taken to surgery. She states this 1 feels like a "double her". She states red swollen and painful. Reports that she does not take her medicines very regularly for diabetes. She does not monitor her blood glucose. Denies fever, nausea or vomiting. No recent travel or known sick contacts. I have treated and performed a rapid initial assessment of this patient. A comprehensive ED assessment and evaluation of the patient, analysis of test results and completion of medical decision making process will be conducted by additional ED providers. PHYSICAL EXAMINATION: GENERAL: Well-appearing, well-nourished and in no acute distress. A&Ox4. Answers questions appropriately. TRAVEL OUTSIDE OF THE [place] IN LAST 30 DAYS: No - Related Data Allergies/Adverse Reactions: No Known Allergies Allergy (Verified 08/10/16 11:18) Home Medications: Is supposed to take meds, but does not. Past Medical History - Past Medical History Cardiac Medical History: Reports: Hx Hypertension Pulmonary Medical History: Neurological Medical History: Endocrine Medical History: Reports: Hx Diabetes Mellitus Type 2 Renal/ Medical History: Denies: Hx Peritoneal Dialysis GI Medical History: Reports: Hx Gastroesophageal Reflux Disease Musculoskeltal Medical History: Reports Hx Arthritis, Reports Hx Gout, Reports Hx Musculoskeletal Deformity, Reports Hx Musculoskeletal Trauma Psychiatric Medical History: Denies: Hx Depression Traumatic Medical History: Reports: Hx Fractures - Humerus Past Surgical History: Reports: Hx Oral Surgery - [place] teeth, Hx Orthopedic Surgery - Back in 2012. 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
[2019-06-29] MEDS ORDERED: SULFAMETHOXAZOLE/TRIMETHOPRIM 800-160 MG TABLET PO ONE (20:48)
[2019-06-29] MEDS ORDERED: LIDOCAINE 1% INJ-PF (10 MG/ML) 30 ML SDV INJ ONE (20:48)
[2019-06-29] MEDS ORDERED: CEFTRIAXONE 1 GM/D5W RTU 1 GM/50 ML RTUPB IV ONE (20:48)
[2019-06-29] MEDS ORDERED: LIDOCAINE 4%/TETRACAINE 0.5%/EPI 0.18% 5 ML TOPICAL SOLN TOP ONE (20:48)
[2019-06-29] MEDS ORDERED: NORMAL SALINE 1000 ML 1,000 ML IV ONE (20:49)
--- NOTE | 2019-06-29 20:50 | ER Document Report ---
ED Skin Rash/Insect Bite/Abscs - General Chief Complaint: Abscess Stated Complaint: POSS ABSCESS ON RIGHT PELVIC Time Seen by Provider: 06/29/19 20:37 Primary Care Provider: NOHEMI CASAS PA-C [Primary Care Provider] - 07/03/19 Notes: Patient is a 33-year-old female with a history of type 2 diabetes on metformin and Lantus that comes emergency department for chief complaint of 3 days of a developing painful, swollen, red area over the right inguinal aspect. She states that this actually popped and started draining purulent material after arriving to the emergency department. She denies any significant spreading redness from the area, denies fever, reports vague nausea. She admits she is not compliant with her diabetes medications. She does not use recreational drugs. She denies . She denies any other complaints. She states she has had a severe abscess on the abdomen with a large area of spreading infection that required surgical debridement once in the past. TRAVEL OUTSIDE OF THE [place] IN LAST 30 DAYS: No - Related Data Allergies/Adverse Reactions: No Known Allergies Allergy (Verified 08/10/16 11:18) Home Medications: Is supposed to take meds, but does not. Past Medical History - General Information source: Patient - Social History Smoking Status: Current Every Day Smoker Frequency of alcohol use: None Drug Abuse: None Lives with: Family Family History: Arthritis, DM, Hypertension, Malignancy. denies: CAD, COPD, CVA, Hyperlipidemia, Thyroid Disfunction Patient has suicidal ideation: No Patient has homicidal ideation: No - Past Medical History Cardiac Medical History: Reports: Hx Hypertension Pulmonary Medical History: Neurological Medical History: Endocrine Medical History: Reports: Hx Diabetes Mellitus Type 2 Renal/ Medical History: Denies: Hx Peritoneal Dialysis GI Medical History: Reports: Hx Gastroesophageal Reflux Disease Musculoskeletal Medical History: Reports Hx Arthritis, Reports Hx Gout, Reports Hx Musculoskeletal Deformity, Reports Hx Musculoskeletal Trauma Psychiatric Medical History: Denies: Hx Depression Traumatic Medical History: Reports: Hx Fractures - Humerus Past Surgical History: Reports: Hx Oral Surgery - [place] teeth, Hx Orthopedic Surgery - Back in 2012. 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 - Immunizations Immunizations up to date: Yes Hx Diphtheria, Pertussis, Tetanus Vaccination: Yes Review of Systems - Review of Systems Constitutional: No symptoms reported EENT: No symptoms reported Cardiovascular: No symptoms reported Respiratory: No symptoms reported Gastrointestinal: No symptoms reported Genitourinary: No symptoms reported Female Genitourinary: No symptoms reported Musculoskeletal: No symptoms reported Skin: See HPI Hematologic/Lymphatic: No symptoms reported Neurological/Psychological: No symptoms reported Physical Exam - Vital signs Vitals: Temp Pulse Resp BP Pulse Ox 99.2 F 111 H 18 169/104 H 92 06/29/19 19:30 06/29/19 19:30 06/29/19 19:30 06/29/19 19:30 06/29/19 19:30 - Notes Notes: GENERAL: Alert, interacts well. No acute distress. Talkative and well-appearing HEAD: Normocephalic, atraumatic. EYES: Pupils equal, round, and reactive to light. Extraocular movements intact. ENT: Oral mucosa moist, tongue midline. Oropharynx unremarkable. Airway patent. Nares patent, no nasal septal hematoma, TM's intact. NECK: Full range of motion. Supple. Trachea midline. LUNGS: Clear to auscultation bilaterally, no wheezes, rales, or rhonchi. No respiratory distress. HEART: Regular rate and rhythm. No murmur ABDOMEN: Soft, non-tender. Non-distended. Bowel sounds present in all 4 quadrants. GENITOURINARY: Right inguinal region with a fluctuant, mildly indurated, tender area in the mid groin with mild surrounding erythema. No streaking away from the area. No nearby lymphadenopathy noted. No genital involvement. Exam performed with [place] BALDWIN at bedside. EXTREMITIES: Moves all 4 extremities spontaneously. No edema, normal radial and dorsalis pedis pulses bilaterally. No cyanosis. BACK: no cervical, thoracic, lumbar midline tenderness. No saddle anesthesia, normal distal neurovascular exam. NEUROLOGICAL: Alert and oriented x3. Normal speech. Cranial nerves II through XII grossly intact. PSYCH: Normal affect, normal mood. SKIN: Warm, dry, normal turgor. No rashes or lesions noted. Course - Re-evaluation Re-evalutation: Patient tachycardic on vital signs but not on my exam. She is not febrile. She does have mild leukocytosis, she has hyperglycemia without acidosis, she is not . She does have a small right inguinal abscess with some mild surrounding cellulitis but there is no streaking away from the area, there is no significant area of cellulitis. The area was drained easily with incision and drainage with moderate amount of pus, the area was packed after discussion with patient. Patient is very well-appearing, talkative, nontoxic. She is requesting to go home. Patient will be trialed on oral antibiotics first, I discussed the great importance and terrible consequences of not taking her diabetes medications, discussed close follow-up, discussed strict return precautions. Patient states understanding and agreement with plan. - Vital Signs Vital signs: Temp Pulse Resp BP Pulse Ox 98.3 F 110 H 18 149/88 H 96 06/29/19 22:44 06/29/19 22:44 06/29/19 22:44 06/29/19 22:44 06/29/19 22:44 - Laboratory Result Diagrams: 06/29/19 21:15 06/29/19 21:15 Laboratory results interpreted by me: 06/29/19 06/29/19 06/29/19 19:38 21:15 21:15 WBC 14.4 H Absolute Neuts (auto) 9.3 H Sodium 134.7 L Creatinine 0.45 L Glucose 286 H POC Glucose 348 H Procedures - Incision and Drainage right inguinal Type: Single Anesthetic type: Other - l.e.t. Blade size: 11 I&D procedure: Shurclens applied, Iodoform packing placed, Sterile dressing applied Incision Method: Incision made by scalpel Amount/type of drainage: A few cc's of purulent drainage, small amount of bloody drainage Discharge - Discharge Clinical Impression: Abscess Cellulitis Qualifiers: Site of cellulitis: unspecified site Qualified Code(s): L03.90 - Cellulitis, unspecified Uncontrolled type II diabetes mellitus Qualifiers: Glycemic state: with hyperglycemia Qualified Code(s): E11.65 - Type 2 diabetes mellitus with hyperglycemia Condition: Stable Disposition: HOME, SELF-CARE Additional Instructions: The abscess has been drained. Please take the antibiotics as prescribed to completion. Keep the area clean, clean with soap and water, apply absorbent dressing over the area. Please take your metformin and Lantus for diabetes. Drink plenty of fluids. Follow close with primary care for additional management. Return if you worsen including developing or spreading redness, worsening pain, developing fever, vomiting, or any other concerning symptoms. Prescriptions: Sulfamethoxazole/Trimethoprim [Bactrim Ds Tablet] 1 each PO BID #14 tablet Cephalexin Monohydrate [Keflex 500 mg Capsule] 500 mg PO QID #28 capsule Forms: Return to Work Referrals: NOHEMI CASAS PA-C [Primary Care Provider] - 07/03/19
[2019-06-29 21:28] LABS: ABSOLUTE BASOPHILS # (AUTO) 0.1 10^3/uL (0.0-0.2); ABSOLUTE EOSINOPHILS # (AUTO) 0.2 10^3/uL (0.0-0.6); ABSOLUTE MONOCYTES (AUTO) 0.7 10^3/uL (0.1-1.4); ABSOLUTE NEUT (AUTO) 9.3 10^3/uL (1.7-8.2); BASOPHILS % (AUTO) 0.7 % (0-2); EOSINOPHILS % (AUTO) 1.6 % (0-6); HEMATOCRIT 43.5 % (36.0-47.0); HEMOGLOBIN 15.2 g/dL (12.0-15.5); LYMPHOCYTES % (AUTO) 27.7 % (13-45); MEAN CORPUSCULAR HEMOGLOBIN 31.3 pg (27.0-33.4); MEAN CORPUSCULAR HGB CONC 34.9 g/dL (32.0-36.0); MEAN CORPUSCULAR VOLUME 90 fl (80-97); MONOCYTES % (AUTO) 5.2 % (3-13); PLATELET COUNT 214 10^3/uL (150-450); RED BLOOD COUNT 4.85 10^6/uL (3.72-5.28); RED CELL DISTRIBUTION WIDTH 12.7 % (11.5-14.0); SEGMENTED NEUTROPHILS % (AUTO) 64.8 % (42-78); TOTAL CELLS COUNTED % (AUTO) 100 %; WHITE BLOOD COUNT 14.4 10^3/uL (4.0-10.5)
[2019-06-29 21:48] LABS: ANION GAP 12 (5-19); BLOOD UREA NITROGEN 10 mg/dL (7-20); CALCIUM 9.1 mg/dL (8.4-10.2); CARBON DIOXIDE 23 mmol/L (22-30); CHLORIDE 100 mmol/L (98-107); GLUCOSE 286 mg/dL (75-110)
[2019-06-29] MEDS ORDERED: FENTANYL CITRATE INJ/PF 100 MCG/2 ML AMPUL IV ONE (22:02)
[2019-06-29] MEDS ORDERED: HYDROCODONE/ACETAMINOPHEN 5-325 MG (6 TAB/ER DISP) PO PRN (22:25)
[2019-06-29 22:50] VITALS: BP 149/88
== END 2019-06-29 22:50 | disposition home or self-care (01) ==
LOC: ER 19:23
DX: L02.214 Cutaneous abscess of groin (principal); L03.314 Cellulitis of groin; E11.65 Type 2 diabetes mellitus with hyperglycemia; T38.3X6A Underdosing of insulin and oral hypoglycemic [antidiabetic] drugs, initial encounter; Z91.14 Patient's other noncompliance with medication regimen; R11.0 Nausea; F17.200 Nicotine dependence, unspecified, uncomplicated; I10 Essential (primary) hypertension; Z83.3 Family history of diabetes mellitus
CPT/HCPCS: 99283; 96365; 36415; 82962; 84703; 85025; 80048; 10060; J3490 ×2; J7030; J0696